=== PATIENT | male | born 1940 | race Caucasian/White ===

== ENCOUNTER → 2016-09-22 | Outpatient (REF) | payer MEDICARE ==
[2016-09-22 18:14] LABS: MEAN CORPUSCULAR HEMOGLOBIN 31.5 pg (27.0-33.0); MEAN CORPUSCULAR VOLUME 90.1 fl (80.0-96.0); RED CELL DISTRIBUTION WIDTH 12.5 % (11.5-14.5); WHITE BLOOD COUNT 7.1 K/mm3 (4.0-10.0)
[2016-09-22 19:19] LABS: ALBUMIN 3.5 GM/DL (3.2-5.2); ALBUMIN/GLOBULIN RATIO 1.13 (1.00-1.93); ALKALINE PHOSPHATASE 84 U/L (45-117); ALT/SGPT 36 U/L (12-78); ANION GAP 5 MEQ/L (8-16); AST/SGOT 23 U/L (15-37); BILIRUBIN,TOTAL 2.4 MG/DL (0.2-1.0); BLOOD UREA NITROGEN 18 MG/DL (7-18); CALCIUM LEVEL 9.4 MG/DL (8.8-10.2); CARBON DIOXIDE LEVEL 31 MEQ/L (21-32); CHLORIDE LEVEL 104 MEQ/L (98-107); CHOLESTEROL LEVEL 143 MG/DL (<200); GLOMERULAR FILTRATION RATE > 60.0 (>42); GLUCOSE, FASTING 135 MG/DL (83-110); POTASSIUM SERUM 4.4 MEQ/L (3.5-5.1); SODIUM LEVEL 140 MEQ/L (136-145); TOTAL PROTEIN 6.6 GM/DL (6.4-8.2); TRIGLYCERIDES LEVEL 100 MG/DL (<150)
== END ==
LOC: M SFHCPLAZ 13:56
PROVIDERS: ATTEND Internal Medicine
DX: Z80.0 Family history of malignant neoplasm of digestive organs (principal); I10 Essential (primary) hypertension; E11.9 Type 2 diabetes mellitus without complications; E78.00 Pure hypercholesterolemia, unspecified

== ENCOUNTER → 2017-03-29 | Outpatient (REF) | payer MEDICARE ==
[2017-03-29 16:03] LABS: ALBUMIN 3.6 GM/DL (3.2-5.2); ALBUMIN/GLOBULIN RATIO 1.13 (1.00-1.93); ALKALINE PHOSPHATASE 88 U/L (45-117); ALT/SGPT 31 U/L (12-78); ANION GAP 10 MEQ/L (8-16); AST/SGOT 23 U/L (7-37); BILIRUBIN,TOTAL 2.2 MG/DL (0.2-1.0); BLOOD UREA NITROGEN 18 MG/DL (7-18); CALCIUM LEVEL 9.6 MG/DL (8.8-10.2); CARBON DIOXIDE LEVEL 27 MEQ/L (21-32); CHLORIDE LEVEL 105 MEQ/L (98-107); CREATININE FOR GFR 1.05 MG/DL (0.70-1.30); GLOMERULAR FILTRATION RATE > 60.0 (>42); GLUCOSE, FASTING 125 MG/DL (83-110); POTASSIUM SERUM 4.7 MEQ/L (3.5-5.1); SODIUM LEVEL 142 MEQ/L (136-145); TOTAL PROTEIN 6.8 GM/DL (6.4-8.2)
== END ==
LOC: M SFHCPLAZ 13:34
PROVIDERS: ATTEND Internal Medicine
DX: I10 Essential (primary) hypertension (principal); E11.9 Type 2 diabetes mellitus without complications

== ENCOUNTER 2017-04-29 18:46 | Emergency (ER) | payer MEDICARE ==
[2017-04-29] MEDS: LIDOCAINE 1% MDV 20ML VIAL SC (20:30)
[2017-04-29] MEDS: TETANUS/DIPHTHERIA TOX ADSORB ADULT 0.5ML SYR/VIAL (90714) IM (20:40)
== END 2017-04-29 21:17 | disposition home or self-care (01) ==
LOC: M ED 18:46
DX: S61.213A Laceration without foreign body of left middle finger without damage to nail, initial encounter (principal); W26.9XXA Contact with unspecified sharp object(s), initial encounter; Y92.018 Other place in single-family (private) house as the place of occurrence of the external cause; Y93.89 Activity, other specified; Y99.8 Other external cause status; E11.9 Type 2 diabetes mellitus without complications; I10 Essential (primary) hypertension; Z79.899 Other long term (current) drug therapy; Z79.84 Long term (current) use of oral hypoglycemic drugs
CPT/HCPCS: 90714

== ENCOUNTER → 2017-10-01 | Outpatient (REF) | payer MEDICARE ==
[2017-10-01 16:04] LABS: HEMATOCRIT 42.5 % (42.0-52.0); HEMOGLOBIN 14.6 g/dl (13.5-17.5); MEAN CORPUSCULAR HEMOGLOBIN 30.1 pg (27.0-33.0); MEAN CORPUSCULAR HGB CONC 34.4 g/dl (32.0-36.5); MEAN CORPUSCULAR VOLUME 87.6 fl (80.0-96.0); PLATELET COUNT, AUTOMATED 245 10^3/uL (150-450); RED BLOOD COUNT 4.85 10^6/uL (4.30-6.10); RED CELL DISTRIBUTION WIDTH 12.7 % (11.5-14.5); WHITE BLOOD COUNT 6.8 10^3/uL (4.0-10.0)
[2017-10-01 16:20] LABS: ALBUMIN 3.4 GM/DL (3.2-5.2); ALBUMIN/GLOBULIN RATIO 1.03 (1.00-1.93); ALKALINE PHOSPHATASE 114 U/L (45-117); ALT/SGPT 29 U/L (12-78); ANION GAP 5 MEQ/L (8-16); AST/SGOT 22 U/L (7-37); BILIRUBIN,TOTAL 1.7 MG/DL (0.2-1.0); BLOOD UREA NITROGEN 21 MG/DL (7-18); CALCIUM LEVEL 9.3 MG/DL (8.8-10.2); CARBON DIOXIDE LEVEL 30 MEQ/L (21-32); CHLORIDE LEVEL 106 MEQ/L (98-107); CHOLESTEROL LEVEL 123 MG/DL (<200); CREATININE FOR GFR 1.23 MG/DL (0.70-1.30); GLOMERULAR FILTRATION RATE > 60.0 (>42); GLUCOSE, FASTING 141 MG/DL (70-100); HDL CHOLESTEROL 60 MG/DL (>40); LDL CHOLESTEROL 39.4 MG/DL (<100); MAGNESIUM LEVEL 2.1 MG/DL (1.8-2.4); NON-HDL-C 63 MG/DL; POTASSIUM SERUM 4.2 MEQ/L (3.5-5.1); SODIUM LEVEL 141 MEQ/L (136-145); TOTAL PROTEIN 6.7 GM/DL (6.4-8.2); TRIGLYCERIDES LEVEL 118 MG/DL (<150)
[2017-10-01 16:22] LABS: ESTIMATED AVERAGE GLUCOSE 137 MG/DL (60-110); HEMOGLOBIN A1c 6.4 %
[2017-10-01 19:41] LABS: MALB URINE SIEMENS 57.9 MG/L
== END ==
LOC: M SFHCPLAZ 14:13
DX: J30.9 Allergic rhinitis, unspecified (principal); I10 Essential (primary) hypertension; E11.9 Type 2 diabetes mellitus without complications; E78.00 Pure hypercholesterolemia, unspecified
CPT/HCPCS: 83735

== ENCOUNTER → 2018-03-29 | Outpatient (REF) | payer MEDICARE ==
[2018-03-29 18:59] LABS: ALBUMIN 3.5 GM/DL (3.2-5.2); ALBUMIN/GLOBULIN RATIO 1.03 (1.00-1.93); ALKALINE PHOSPHATASE 123 U/L (45-117); ALT/SGPT 29 U/L (12-78); ANION GAP 8 MEQ/L (8-16); AST/SGOT 26 U/L (7-37); BLOOD UREA NITROGEN 23 MG/DL (7-18); CALCIUM LEVEL 9.3 MG/DL (8.8-10.2); CARBON DIOXIDE LEVEL 28 MEQ/L (21-32); CHLORIDE LEVEL 105 MEQ/L (98-107); CREATININE FOR GFR 1.21 MG/DL (0.70-1.30); GLOMERULAR FILTRATION RATE > 60.0 (>42); GLUCOSE, FASTING 117 MG/DL (70-100); MAGNESIUM LEVEL 2.1 MG/DL (1.8-2.4); POTASSIUM SERUM 4.2 MEQ/L (3.5-5.1); SODIUM LEVEL 141 MEQ/L (136-145); TOTAL PROTEIN 6.9 GM/DL (6.4-8.2)
[2018-03-29 20:46] LABS: ESTIMATED AVERAGE GLUCOSE 143 MG/DL (60-110); HEMOGLOBIN A1c 6.6 %
== END ==
LOC: M SFHCPLAZ 14:28
DX: I10 Essential (primary) hypertension (principal); E11.9 Type 2 diabetes mellitus without complications
CPT/HCPCS: 83735

== ENCOUNTER → 2018-11-23 | Outpatient (REF) | payer MEDICARE ==
[~2018-11-23] MED LIST: BIMA01SOL; BISO10TA13 PO; GEMF600T5 PO; ISTA0.5S; LISINOPRIL-HCTZ; METF750T; SIMV40TA2
[2018-11-23 16:15] LABS: HEMATOCRIT 43.4 % (42.0-52.0); HEMOGLOBIN 14.8 g/dl (13.5-17.5); MEAN CORPUSCULAR HGB CONC 34.1 g/dl (32.0-36.5); PLATELET COUNT, AUTOMATED 238 10^3/uL (150-450); RED BLOOD COUNT 4.93 10^6/uL (4.30-6.10); WHITE BLOOD COUNT 7.8 10^3/uL (4.0-10.0)
[2018-11-23 16:37] LABS: ALBUMIN 3.8 GM/DL (3.2-5.2); ALT/SGPT 29 U/L (12-78); BLOOD UREA NITROGEN 18 MG/DL (7-18); CALCIUM LEVEL 10.2 MG/DL (8.8-10.2); CARBON DIOXIDE LEVEL 32 MEQ/L (21-32); CHLORIDE LEVEL 106 MEQ/L (98-107); CHOLESTEROL LEVEL 132 MG/DL (<200); CHOLESTEROL RISK RATIO 2.062 (<5); CREATININE FOR GFR 1.13 MG/DL (0.70-1.30); GLOMERULAR FILTRATION RATE > 60.0 (>42); GLUCOSE, FASTING 113 MG/DL (70-100); HDL CHOLESTEROL 64 MG/DL (>40); LDL CHOLESTEROL 39 MG/DL (<100); NON-HDL-C 68 MG/DL; POTASSIUM SERUM 4.2 MEQ/L (3.5-5.1); SODIUM LEVEL 142 MEQ/L (136-145); TRIGLYCERIDES LEVEL 144 MG/DL (<150)
[2018-11-23 16:45] LABS: MALB URINE SIEMENS 59.4 MG/L; MAU/CREAT RATIO 15.9 MCG/MG (0.0-30.0)
[2018-11-23 16:55] LABS: HEMOGLOBIN A1c 6.8 %
== END ==
LOC: M SFHCPLAZ 14:46
PROVIDERS: ATTEND Internal Medicine
DX: J30.9 Allergic rhinitis, unspecified (principal); I10 Essential (primary) hypertension; E11.9 Type 2 diabetes mellitus without complications; E78.00 Pure hypercholesterolemia, unspecified

== ENCOUNTER → 2019-01-16 | Outpatient (CLI) | payer MEDICARE ==
[~2019-01-16] MED LIST changes: -METF750T; +METF750T36
[2019-01-16 15:00] LABS: BLOOD UREA NITROGEN 17 MG/DL (7-18); CREATININE FOR GFR 1.15 MG/DL (0.70-1.30); GLOMERULAR FILTRATION RATE > 60.0 (>42)
== END ==
LOC: M LAB 13:42
PROVIDERS: ATTEND Specialist
DX: D14.1 Benign neoplasm of larynx (principal)

== ENCOUNTER → 2019-01-20 | Outpatient (CLI) | payer MEDICARE ==
[~2019-01-20] MED LIST changes: +ISOVUE-370 76% 100ML VIAL (Q9967) As Ordered ONE
--- NOTE | 2019-01-20 13:06 | REP ---
CT neck soft tissues study with IV contrast: History: Benign neoplasm of the larynx. CT contrast dose: 75 ml of intravenous Isovue [address] findings: Digital preliminary bead flipper views are unremarkable. No other supraglottic mass lesion is seen. Epiglottis and aryepiglottic folds are unremarkable. Thyroid and arytenoid cartilages are unremarkable. No subglottic airway lesion is seen. There is a 5 mm polypoid lesion on the left anterior side of the glottis at what appears to be the level of the false cords. There is a second smaller 3 mm polyp just below this which may be associated with the true cord or the larger polyp. These are best displayed on sagittal thin-section MPR images windowed at lung window settings. The left vertebral artery is incidentally noted to take a a a direct aortic origin. No other vascular abnormality is observed. Visualized paranasal sinuses are clear. The visualized intracranial structures are unremarkable. There is no evidence of cervical lymphadenopathy. Thyroid lobes are normal and homogeneous. Submandibular and parotid glands are normal and symmetric. No bony destructive lesion is seen. 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 Impression: Polypoid changes on the left side of the glottis as above. Electronically Signed by Gerson Arriaga MD 01/20/2019 12:57 P
== END ==
LOC: M RAD 09:48
PROVIDERS: ATTEND Specialist
DX: D14.1 Benign neoplasm of larynx (principal)
CPT/HCPCS: 70491; Q9967

== ENCOUNTER 2019-03-20 09:37 | Day surgery (SDC) | payer MEDICARE ==
[~2019-03-20] VITALS: Ht 180.3 cm; Wt 84.9 kg
[~2019-03-20 09:37] MED LIST changes: +ASPI81TA85 PO; -BIMA01SOL; +BIMA01SOL OU; +BISO5TAB9 PO; +DORZ2SOL5 OU; -ISOVUE-370 76% 100ML VIAL (Q9967) As Ordered ONE; +LIDOCAINE 1% MDV 20ML VIAL SQ PRN; +LISI20TA19 PO; +LOVA1CAP17 PO; +LR 1,000 ML IV ONE; +META0.52 PO; -METF750T36; +METF750T36 PO; +MULTCAP PO; -SIMV40TA2; +SIMV40TA20
[2019-03-20] MEDS ORDERED: PROPOFOL 200 MG/20 ML VIAL As Ordered ONE (10:43)
[2019-03-20] MEDS ORDERED: ROCURONIUM BROMIDE 50 MG/5 ML VIAL As Ordered ONE (10:43)
[2019-03-20] MEDS ORDERED: LIDOCAINE 2% INJ 100 MG/5 ML SDV (FOR ANES.) As Ordered ONE (10:43)
[2019-03-20] MEDS ORDERED: dexameTHASONE 4 MG/ML 1ML VIAL (J1100) As Ordered ONE (10:43)
[2019-03-20] MEDS ORDERED: fentaNYL 250 MCG/5 ML INJECTION (J3010) As Ordered ONE (10:43)
[2019-03-20] MEDS ORDERED: MIDAZOLAM INJ 2 MG/2 ML VIAL (J2250) As Ordered ONE (10:43)
[2019-03-20] MEDS ORDERED: ONDANSETRON 4MG/2ML VIAL (J2405) As Ordered ONE (10:43)
[2019-03-20] MEDS ORDERED: EPINEPHrine 1MG/ML INJ 30ML MD-VIAL As Ordered ONE (12:02)
[2019-03-20] MEDS ORDERED: CETACAINE SPRAY 5GM As Ordered ONE (12:02)
[2019-03-20] MEDS ORDERED: ACETAMINOPHEN 1000MG 100ML IV BTL (OFIRMEV) (J0131 PER 10MG) As Ordered ONE (12:34)
[2019-03-20] MEDS ORDERED: SUGAMMADEX SODIUM 500 MG/5 ML VIAL (BRIDION) As Ordered ONE (12:34)
[2019-03-20] MEDS ORDERED: PHENYLephrine HCL 500 MCG/5 ML (100MCG/ML) SYRINGE (J2370) As Ordered ONE (12:47)
[2019-03-20] MEDS ORDERED: SUCCINYLCHOLINE 100 MG/5 ML SYRINGE (J0330) As Ordered ONE (12:47)
[2019-03-20] MEDS ORDERED: fentaNYL 100 MCG/2 ML INJECTION (J3010) IV PRN (13:30)
[2019-03-20] MEDS ORDERED: PERCOCET 5MG/325MG TAB PO PRN ×2 (13:30)
[2019-03-20] MEDS ORDERED: ONDANSETRON 4MG/2ML VIAL (J2405) IV PRN (13:30)
[2019-03-20] MEDS ORDERED: METOCLOPRAMIDE INJ 10MG/2ML VIAL (J2765) IV PRN (13:30)
[2019-03-20] MEDS ORDERED: LR 1,000 ML IV SCH (13:30)
[2019-03-20 13:41] VITALS: BP 161/77
--- NOTE | 2019-03-23 17:53 | RO ---
DATE OF PROCEDURE: PREPROCEDURE DIAGNOSIS: Left vocal cord mass. 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 PROCEDURE: Microdirect laryngoscopy and excision of vocal cord masses. SURGEON: Austyn Garcia MD SERVER SECURITY ADMINISTRATOR: ANESTHESIA: INDICATIONS: A 79-year-old nonsmoker, presents with hoarseness after yelling and screaming at one of his pets. On examination, it was suggestive of some type of soft tissue mass in the very anterior one-third of the left vocal fold, appeared to be actually on the false fold but seemed to also extend onto the left true cord as well. DESCRIPTION OF PROCEDURE: Satisfactory general endotracheal anesthesia using the small endotracheal tube, double-lighted Dedo laryngoscope was inserted in the oropharynx and advanced into the glottic vestibule and with good visualization of the glottis, it was suspended with the Lewey apparatus. Microscope was brought in place and then photomicrographs were taken. It appeared to be a mucocele-type cystic mass on the medial aspect of the left vocal fold far anteriorly. There also appeared to be a granuloma-type mass seen coming beneath this that seemed to emerge from the left true cord. Adrenaline pledget was placed over this area for vasoconstriction purposes. This was removed and using the Straightshot microdebrider, first the granuloma mass was biopsied and then excised completely with the microdebrider. No significant bleeding was encountered. Adrenaline pledge was placed over the true cord where the granuloma had been. Next, the microdebrider was placed in contact with the cystic mucocele-type mass seen on the left vocal cord and basically excised it with very little remnant left over of soft tissue. Inspection of the glottis and the false cord showed no significant redundant mucosal tissue, and there was no significant edema noted. After adrenaline pledgets were removed after having been placed on the surgical site, there was no significant bleeding. The glottis was suctioned. The patient was then awakened, extubated and sent to recovery in satisfactory condition.
== END 2019-03-20 14:23 | disposition home or self-care (01) ==
LOC: M SDC 09:37
PROVIDERS: ATTEND Specialist
DX: J38.3 Other diseases of vocal cords (principal); R49.0 Dysphonia; I10 Essential (primary) hypertension; E11.9 Type 2 diabetes mellitus without complications; E78.00 Pure hypercholesterolemia, unspecified; Z79.82 Long term (current) use of aspirin; Z79.899 Other long term (current) drug therapy
CPT/HCPCS: 31541; 88305; 88342; J0131; J0330; J1100; J2250; J2370; J2405; J3010

== ENCOUNTER 2019-05-21 15:41 | Emergency (ER) | payer MEDICARE ==
[~2019-05-21] VITALS: Ht 180.3 cm; Wt 87.5 kg
[2019-05-21 15:41] VITALS: BP 153/78
[~2019-05-21 15:41] MED LIST changes: +BISO5TAB14 PO; -BISO5TAB9 PO; -LIDOCAINE 1% MDV 20ML VIAL SQ PRN; -LR 1,000 ML IV ONE
[2019-05-21] MEDS ORDERED: ISTA0.5S OU (15:54)
[2019-05-21] MEDS ORDERED: VALA1TAB64 PO (16:20)
[2019-05-21] MEDS ORDERED: NEUR100C PO (16:20)
[2019-05-21] MEDS ORDERED: GABAPENTIN 100 MG CAP PO ONE (16:30)
[2019-05-21] MEDS ORDERED: valACYclovir HCL 500 MG TAB PO ONE (16:30)
== END 2019-05-21 16:42 | disposition home or self-care (01) ==
LOC: M ED 15:41
DX: B02.9 Zoster without complications (principal); Z79.82 Long term (current) use of aspirin; Z79.84 Long term (current) use of oral hypoglycemic drugs; Z79.899 Other long term (current) drug therapy

== ENCOUNTER → 2019-05-29 | Outpatient (CLI) | payer MEDICARE ==
[~2019-05-29] MED LIST changes: +ISTA0.5S OU; +NEUR100C PO; +VALA1TAB5 PO
[2019-05-29 17:30] LABS: ALBUMIN 3.8 GM/DL (3.2-5.2); ALT/SGPT 30 U/L (12-78); BILIRUBIN,TOTAL 1.9 MG/DL (0.2-1.0); BLOOD UREA NITROGEN 20 MG/DL (7-18); CALCIUM LEVEL 9.9 MG/DL (8.8-10.2); CARBON DIOXIDE LEVEL 30 MEQ/L (21-32); CHLORIDE LEVEL 105 MEQ/L (98-107); CHOLESTEROL LEVEL 127 MG/DL (<200); CHOLESTEROL RISK RATIO 2.116 (<5); CREATININE FOR GFR 1.16 MG/DL (0.70-1.30); GLOMERULAR FILTRATION RATE > 60.0 (>42); GLUCOSE, FASTING 129 MG/DL (70-100); HDL CHOLESTEROL 60 MG/DL (>40); LDL CHOLESTEROL 47 MG/DL (<100); MAGNESIUM LEVEL 1.9 MG/DL (1.8-2.4); NON-HDL-C 67 MG/DL; POTASSIUM SERUM 4.4 MEQ/L (3.5-5.1); SODIUM LEVEL 140 MEQ/L (136-145); TRIGLYCERIDES LEVEL 99 MG/DL (<150)
== END ==
LOC: M PLALAB 13:34
PROVIDERS: ATTEND Internal Medicine
DX: E11.9 Type 2 diabetes mellitus without complications (principal); E78.00 Pure hypercholesterolemia, unspecified; I10 Essential (primary) hypertension

== ENCOUNTER → 2019-11-30 | Outpatient (REF) | payer MEDICARE ==
[~2019-11-30] MED LIST changes: -ASPI81TA85 PO; +ASPI81TA86 PO; -LISI20TA19 PO; +LISI20TA35 PO
[2020-01-03 13:35] LABS: HEMATOCRIT 42.2 % (42.0-52.0); HEMOGLOBIN 14.5 g/dl (13.5-17.5); MEAN CORPUSCULAR HEMOGLOBIN 30.9 pg (27.0-33.0); MEAN CORPUSCULAR HGB CONC 34.4 g/dl (32.0-36.5); PLATELET COUNT, AUTOMATED 239 10^3/uL (150-450); RED BLOOD COUNT 4.69 10^6/uL (4.30-6.10)
[2020-01-17 12:58] LABS: ALT/SGPT 23 U/L (12-78); BILIRUBIN,TOTAL 2.5 MG/DL (0.2-1.0); BLOOD UREA NITROGEN 24 MG/DL (7-18); CALCIUM LEVEL 9.6 MG/DL (8.8-10.2); CARBON DIOXIDE LEVEL 32 MEQ/L (21-32); CHLORIDE LEVEL 104 MEQ/L (98-107); CHOLESTEROL LEVEL 127 MG/DL (<200); CHOLESTEROL RISK RATIO 2.351 (<5); CREATININE FOR GFR 1.19 MG/DL (0.70-1.30); FOLATE > 24.0 NG/ML; GLOMERULAR FILTRATION RATE > 60.0 (>42); GLUCOSE, FASTING 123 MG/DL (70-100); HDL CHOLESTEROL 54 MG/DL (>40); HEMOGLOBIN A1c 5.8 %; LDL CHOLESTEROL 44 MG/DL (<100); MAGNESIUM LEVEL 1.9 MG/DL (1.8-2.4); NON-HDL-C 73 MG/DL; SODIUM LEVEL 139 MEQ/L (136-145); TOTAL PROTEIN 7.3 GM/DL (6.4-8.2); TRIGLYCERIDES LEVEL 145 MG/DL (<150); VITAMIN B12 LEVEL 349 PG/ML
== END ==
LOC: M SFHCPLAZ 15:36
PROVIDERS: ATTEND Internal Medicine
DX: I10 Essential (primary) hypertension (principal); E11.9 Type 2 diabetes mellitus without complications; G62.9 Polyneuropathy, unspecified; E78.00 Pure hypercholesterolemia, unspecified; Z80.0 Family history of malignant neoplasm of digestive organs

== ENCOUNTER → 2020-05-27 | Outpatient (REF) | payer MEDICARE ==
[2020-05-27 19:12] LABS: CREATININE, URINE 94.4 MG/DL; MALB URINE SIEMENS 9.6 MG/L; MAU/CREAT RATIO 10.1 MCG/MG (0.0-30.0)
[2020-05-27 19:15] LABS: ALBUMIN 3.7 GM/DL (3.2-5.2); ALT/SGPT 22 U/L (12-78); BILIRUBIN,TOTAL 2.2 MG/DL (0.2-1.0); BLOOD UREA NITROGEN 23 MG/DL (7-18); CARBON DIOXIDE LEVEL 32 MEQ/L (21-32); CHLORIDE LEVEL 105 MEQ/L (98-107); CHOLESTEROL LEVEL 125 MG/DL (<200); CHOLESTEROL RISK RATIO 2.155 (<5); CREATININE FOR GFR 1.21 MG/DL (0.70-1.30); GLOMERULAR FILTRATION RATE > 60.0 (>35); GLUCOSE, FASTING 117 MG/DL (70-100); HDL CHOLESTEROL 58 MG/DL (>40); LDL CHOLESTEROL 43 MG/DL (<100); MAGNESIUM LEVEL 1.8 MG/DL (1.8-2.4); NON-HDL-C 67 MG/DL; POTASSIUM SERUM 4.5 MEQ/L (3.5-5.1); SODIUM LEVEL 142 MEQ/L (136-145); TRIGLYCERIDES LEVEL 120 MG/DL (<150)
[2020-05-27 20:20] LABS: HEMOGLOBIN A1c 5.8 %
== END ==
LOC: M PLALAB 14:24
PROVIDERS: ATTEND Internal Medicine
DX: I10 Essential (primary) hypertension (principal); E11.9 Type 2 diabetes mellitus without complications; E78.00 Pure hypercholesterolemia, unspecified; Z11.59 Encounter for screening for other viral diseases
CPT/HCPCS: 36415; 80053; 80061; 82043; 83036; 83735; G0472

== ENCOUNTER → 2020-11-27 | Outpatient (CLI) | payer MEDICARE ==
[2020-11-27 15:46] LABS: ALBUMIN 3.6 GM/DL (3.2-5.2); ALT/SGPT 25 U/L (12-78); BILIRUBIN,TOTAL 1.8 MG/DL (0.2-1.0); BLOOD UREA NITROGEN 25 MG/DL (7-18); CARBON DIOXIDE LEVEL 30 MEQ/L (21-32); CHLORIDE LEVEL 107 MEQ/L (98-107); CREATININE FOR GFR 1.02 MG/DL (0.70-1.30); GLOMERULAR FILTRATION RATE > 60.0 (>35); GLUCOSE, FASTING 118 MG/DL (70-100); MAGNESIUM LEVEL 2.1 MG/DL (1.8-2.4); POTASSIUM SERUM 4.2 MEQ/L (3.5-5.1); SODIUM LEVEL 142 MEQ/L (136-145); TOTAL PROTEIN 6.6 GM/DL (6.4-8.2)
== END ==
LOC: M PLALAB 13:10
PROVIDERS: ATTEND Internal Medicine
DX: I10 Essential (primary) hypertension (principal); E11.9 Type 2 diabetes mellitus without complications

== ENCOUNTER → 2021-03-07 | Outpatient (CLI) | payer MEDICARE ==
--- NOTE | 2021-03-07 16:28 | REP ---
INDICATION: RIGHT ELBOW PAIN COMPARISON: None. TECHNIQUE: AP, lateral, bilateral oblique views of the right elbow. FINDINGS: Lateral view demonstrates posterior swelling consistent with bursitis. Osseous structures are intact and without acute fracture or dislocation. No significant arthritic changes are identified. Anterior fat pad is in normal position. IMPRESSION: Posterior swelling consistent with bursitis. <Electronically signed by Donnie Stout > 03/07/21 [id number]
[2021-03-07 17:21] LABS: BASO # 0.1 10^3/uL (0.0-0.2); BASO % 0.5 % (0.0-1.0); EOS # 0.2 10^3/uL (0.0-0.5); EOS % 2.3 % (0.0-3.0); HEMATOCRIT 43.8 % (42.0-52.0); HEMOGLOBIN 14.4 g/dl (13.5-17.5); LYMPH # 3.1 10^3/uL (1.5-5.0); MEAN CORPUSCULAR HEMOGLOBIN 29.6 pg (27.0-33.0); MEAN CORPUSCULAR HGB CONC 32.9 g/dl (32.0-36.5); MEAN CORPUSCULAR VOLUME 89.9 fl (80.0-96.0); MONO % 9.8 % (2.0-8.0); NEUTROPHILS # 5.5 10^3/uL (1.5-8.5); PLATELET COUNT, AUTOMATED 252 10^3/uL (150-450); RED BLOOD COUNT 4.87 10^6/uL (4.30-6.10); WHITE BLOOD COUNT 9.9 10^3/uL (4.0-10.0)
[2021-03-07 17:46] LABS: ALBUMIN 3.4 GM/DL (3.2-5.2); ALT/SGPT 18 U/L (12-78); BILIRUBIN,TOTAL 2.4 MG/DL (0.2-1.0); BLOOD UREA NITROGEN 23 MG/DL (7-18); C REACTIVE PROTEIN QUANTITATIV 3.21 MG/DL (0.00-0.30); CALCIUM LEVEL 9.9 MG/DL (8.8-10.2); CARBON DIOXIDE LEVEL 32 MEQ/L (21-32); CHLORIDE LEVEL 102 MEQ/L (98-107); CREATININE FOR GFR 1.19 MG/DL (0.70-1.30); GLOMERULAR FILTRATION RATE > 60.0 (>35); GLUCOSE, FASTING 119 MG/DL (70-100); POTASSIUM SERUM 4.4 MEQ/L (3.5-5.1); SODIUM LEVEL 138 MEQ/L (136-145); TOTAL PROTEIN 7.1 GM/DL (6.4-8.2); URIC ACID 6.8 MG/DL (3.5-7.2)
[2021-03-07 18:45] LABS: ERYTHROCYTE SEDIMENTATION RATE 48 mm/hr (0-20)
== END ==
LOC: M PLAIMG 15:46
PROVIDERS: ATTEND Family Medicine
DX: M70.21 Olecranon bursitis, right elbow (principal); Z79.899 Other long term (current) drug therapy

== ENCOUNTER → 2021-05-28 | Outpatient (CLI) | payer MEDICARE ==
[2021-05-28 17:57] LABS: BASO # 0.1 10^3/uL (0.0-0.2); BASO % 0.9 % (0.0-1.0); EOS # 0.3 10^3/uL (0.0-0.5); EOS % 3.6 % (0.0-3.0); HEMOGLOBIN 15.2 g/dl (13.5-17.5); LYMPH # 2.5 10^3/uL (1.5-5.0); LYMPH % 36.5 % (24.0-44.0); MEAN CORPUSCULAR HEMOGLOBIN 30.1 pg (27.0-33.0); MEAN CORPUSCULAR HGB CONC 33.8 g/dl (32.0-36.5); MEAN CORPUSCULAR VOLUME 89.1 fl (80.0-96.0); MONO # 0.6 10^3/uL (0.0-0.8); MONO % 8.8 % (2.0-8.0); NEUTROPHILS # 3.5 10^3/uL (1.5-8.5); NEUTROPHILS % 50.1 % (36.0-66.0); PLATELET COUNT, AUTOMATED 264 10^3/uL (150-450); RED BLOOD COUNT 5.05 10^6/uL (4.30-6.10); WHITE BLOOD COUNT 6.9 10^3/uL (4.0-10.0)
[2021-05-28 18:06] LABS: MALB URINE SIEMENS 31.8 MG/L; MAU/CREAT RATIO 20.7 MCG/MG (0.0-30.0)
[2021-05-28 18:12] LABS: ALBUMIN 3.5 GM/DL (3.2-5.2); ALT/SGPT 21 U/L (12-78); BILIRUBIN,TOTAL 2.6 MG/DL (0.2-1.0); BLOOD UREA NITROGEN 27 MG/DL (7-18); CALCIUM LEVEL 9.8 MG/DL (8.8-10.2); CARBON DIOXIDE LEVEL 31 MEQ/L (21-32); CHLORIDE LEVEL 105 MEQ/L (98-107); CHOLESTEROL LEVEL 120 MG/DL (<200); CHOLESTEROL RISK RATIO 2.105 (<5); CREATININE FOR GFR 1.19 MG/DL (0.70-1.30); GLOMERULAR FILTRATION RATE > 60.0 (>35); GLUCOSE, FASTING 111 MG/DL (70-100); HDL CHOLESTEROL 57 MG/DL (>40); LDL CHOLESTEROL 40 MG/DL (<100); NON-HDL-C 63 MG/DL; POTASSIUM SERUM 4.4 MEQ/L (3.5-5.1); SODIUM LEVEL 141 MEQ/L (136-145); TOTAL PROTEIN 6.9 GM/DL (6.4-8.2); TRIGLYCERIDES LEVEL 117 MG/DL (<150)
[2021-05-29 17:26] LABS: MAGNESIUM LEVEL 1.9 MG/DL (1.7-2.2)
== END ==
LOC: M PLALAB 14:57
PROVIDERS: ATTEND Internal Medicine
DX: I10 Essential (primary) hypertension (principal); E11.9 Type 2 diabetes mellitus without complications; E78.00 Pure hypercholesterolemia, unspecified; Z80.0 Family history of malignant neoplasm of digestive organs

== ENCOUNTER → 2021-10-01 | Outpatient (CLI) | payer MEDICARE | LOC: M ONCR 15:19 | PROVIDERS: ATTEND General Practice | DX: D04.4 Carcinoma in situ of skin of scalp and neck (principal); L57.0 Actinic keratosis; L64.8 Other androgenic alopecia; Z79.82 Long term (current) use of aspirin; Z79.84 Long term (current) use of oral hypoglycemic drugs; Z79.899 Other long term (current) drug therapy; Z85.828 Personal history of other malignant neoplasm of skin ==

== ENCOUNTER 2021-10-07 08:32 | Outpatient (RCR) | payer MEDICARE | END 2021-10-16 | LOC: M ONCR 08:32 | PROVIDERS: ATTEND General Practice | DX: C44.42 Squamous cell carcinoma of skin of scalp and neck (principal); I10 Essential (primary) hypertension; E11.9 Type 2 diabetes mellitus without complications; Z79.899 Other long term (current) drug therapy; Z79.84 Long term (current) use of oral hypoglycemic drugs; Z79.82 Long term (current) use of aspirin ==

== ENCOUNTER 2021-11-14 15:18 | Outpatient (RCR) | payer MEDICARE | END 2021-11-16 | LOC: M ONCR 15:18 | PROVIDERS: ATTEND General Practice | DX: C44.42 Squamous cell carcinoma of skin of scalp and neck (principal) ==

== ENCOUNTER 2021-11-17 15:21 | Outpatient (RCR) | payer MEDICARE | END 2021-12-17 | LOC: M ONCR 15:21 | PROVIDERS: ATTEND General Practice | DX: C44.42 Squamous cell carcinoma of skin of scalp and neck (principal) ==

== ENCOUNTER → 2021-11-27 | Outpatient (CLI) | payer MEDICARE ==
[2021-11-27 16:55] LABS: ALBUMIN 3.2 GM/DL (3.2-5.2); ALT/SGPT 23 U/L (12-78); BILIRUBIN,TOTAL 1.5 MG/DL (0.2-1.0); BLOOD UREA NITROGEN 25 MG/DL (7-18); CALCIUM LEVEL 9.6 MG/DL (8.8-10.2); CARBON DIOXIDE LEVEL 29 MEQ/L (21-32); CHLORIDE LEVEL 107 MEQ/L (98-107); GLOMERULAR FILTRATION RATE > 60.0 (>35); GLUCOSE, FASTING 119 MG/DL (70-100); MAGNESIUM LEVEL 1.9 MG/DL (1.8-2.4); POTASSIUM SERUM 4.3 MEQ/L (3.5-5.1); SODIUM LEVEL 142 MEQ/L (136-145); TOTAL PROTEIN 6.6 GM/DL (6.4-8.2)
[2021-11-27 20:24] LABS: HEMOGLOBIN A1c 5.8 %
== END ==
LOC: M PLALAB 12:58
PROVIDERS: ATTEND Internal Medicine
DX: I10 Essential (primary) hypertension (principal); E11.9 Type 2 diabetes mellitus without complications

== ENCOUNTER → 2021-12-19 | Outpatient (CLI) | payer MEDICARE | LOC: M ONCR 15:18 | PROVIDERS: ATTEND General Practice | DX: Z08 Encounter for follow-up examination after completed treatment for malignant neoplasm (principal); L59.8 Other specified disorders of the skin and subcutaneous tissue related to radiation; Z92.3 Personal history of irradiation ==

== ENCOUNTER → 2022-05-29 | Outpatient (CLI) | payer MEDICARE ==
[2022-05-29 17:26] LABS: HEMATOCRIT 44.3 % (42.0-52.0); MEAN CORPUSCULAR HEMOGLOBIN 30.6 pg (27.0-33.0); MEAN CORPUSCULAR HGB CONC 33.9 g/dl (32.0-36.5); MEAN CORPUSCULAR VOLUME 90.4 fl (80.0-96.0); PLATELET COUNT, AUTOMATED 239 10^3/uL (150-450); WHITE BLOOD COUNT 6.5 10^3/uL (4.0-10.0)
[2022-05-29 17:37] LABS: C REACTIVE PROTEIN QUANTITATIV < 0.40 MG/DL (<1.0)
[2022-05-29 17:40] LABS: CREATININE, URINE 80.5 MG/DL; MAU/CREAT RATIO 22.3 MCG/MG (0.0-30.0)
[2022-05-29 17:43] LABS: ALBUMIN 3.7 G/DL (3.2-5.2); ALKALINE PHOSPHATASE 107 U/L (46-116); ALT/SGPT 22 U/L (7.0-40); AST/SGOT 30 U/L (<34); BILIRUBIN,TOTAL 2.3 MG/DL (0.3-1.2); BLOOD UREA NITROGEN 25 MG/DL (9-23); CALCIUM LEVEL 9.7 MG/DL (8.3-10.6); CARBON DIOXIDE LEVEL 33 MMOL/L (20-31); CHLORIDE LEVEL 102 MMOL/L (98-107); CHOLESTEROL LEVEL 133 MG/DL (<200); CHOLESTEROL RISK RATIO 2.33 (<5); CREATININE FOR GFR 1.08 MG/DL (0.70-1.30); FREE T4 1.05 NG/DL (0.89-1.76); GLOMERULAR FILTRATION RATE > 60.0 (>35); GLUCOSE, FASTING 105 MG/DL (74-106); LDL CHOLESTEROL 40.4 MG/DL (<100); NON-HDL-C 76 MG/DL; POTASSIUM SERUM 4.4 MMOL/L (3.5-5.1); SODIUM LEVEL 138 MMOL/L (136-145); TOTAL 25(OH) VITAMIN D 33.9 NG/ML (20.0-100.0); TOTAL PROTEIN 6.5 G/DL (5.7-8.2); TRIGLYCERIDES LEVEL 178 MG/DL (<150); VITAMIN B12 LEVEL 381 PG/ML (211-911)
[2022-05-29 17:47] LABS: HEMOGLOBIN A1c 6.1 % (4.0-6.0)
== END ==
LOC: M PLALAB 15:37
PROVIDERS: ATTEND Internal Medicine Hematology
DX: I10 Essential (primary) hypertension (principal); Z79.899 Other long term (current) drug therapy

== ENCOUNTER → 2022-05-29 | Outpatient (CLI) | payer MEDICARE | LOC: M ONCR 14:47 | PROVIDERS: ATTEND General Practice | DX: C44.42 Squamous cell carcinoma of skin of scalp and neck (principal); Z79.82 Long term (current) use of aspirin; Z79.84 Long term (current) use of oral hypoglycemic drugs; Z79.899 Other long term (current) drug therapy ==

== ENCOUNTER → 2022-12-02 | Outpatient (REF) | payer MEDICARE ==
[2022-12-02 17:36] LABS: HEMATOCRIT 41.9 % (42.0-52.0); HEMOGLOBIN 13.9 g/dl (13.5-17.5); MEAN CORPUSCULAR HGB CONC 33.2 g/dl (32.0-36.5); MEAN CORPUSCULAR VOLUME 90.5 fl (80.0-96.0); PLATELET COUNT, AUTOMATED 255 10^3/uL (150-450); RED BLOOD COUNT 4.63 10^6/uL (4.30-6.10); WHITE BLOOD COUNT 9.5 10^3/uL (4.0-10.0)
[2022-12-02 17:58] LABS: HEMOGLOBIN A1c 6.4 % (4.0-6.0)
[2022-12-02 18:05] LABS: ALBUMIN 3.7 G/DL (3.2-5.2); CALCIUM LEVEL 9.7 MG/DL (8.3-10.6); CHOLESTEROL RISK RATIO 2.53 (<5); CREATININE FOR GFR 1.67 MG/DL (0.70-1.30); FREE T4 1.09 NG/DL (0.89-1.76); GLOMERULAR FILTRATION RATE 42.1 (>35); HDL CHOLESTEROL 54.1 MG/DL (>40); LDL CHOLESTEROL 60.9 MG/DL (<100); NON-HDL-C 82.9 MG/DL; POTASSIUM SERUM 4.1 MMOL/L (3.5-5.1); THYROID STIMULATING HORMONE 1.389 uIU/ML (0.55-4.78); TOTAL PROTEIN 6.7 G/DL (5.7-8.2)
[2022-12-02 18:06] LABS: C REACTIVE PROTEIN QUANTITATIV 0.5 MG/DL (<1.0); TOTAL 25(OH) VITAMIN D 38.9 NG/ML (20.0-100.0)
== END ==
LOC: M PLALAB 16:56
PROVIDERS: ATTEND Internal Medicine Hematology
DX: E78.00 Pure hypercholesterolemia, unspecified (principal)

== ENCOUNTER → 2023-11-12 | Outpatient (REF) ==
[~2023-11-12] MED LIST changes: +ALLO10TA PO; +AMLO1TAB24 PO; +ASPI81TA26 PO; +BICA50TA4 PO; +CETI10TA PO; +FINA5TAB2 PO; +FLOM0.4C39 PO; +INDE80CA9 PO; +LISI20TA33 PO; +PROP60CA PO; -SIMV40TA20; +SIMV40TA20 PO; +THERTAB52 PO; +XALA0.007 OU
[2023-11-12 21:23] LABS: BASO # 0.1 10^3/uL (0.0-0.2); BASO % 0.9 % (0.0-1.0); EOS # 0.6 10^3/uL (0.0-0.5); HEMOGLOBIN 11.6 g/dl (13.5-17.5); LYMPH # 2.6 10^3/uL (1.5-5.0); LYMPH % 31.8 % (24.0-44.0); MEAN CORPUSCULAR HEMOGLOBIN 28.5 pg (27.0-33.0); MEAN CORPUSCULAR HGB CONC 32.2 g/dl (32.0-36.5); MEAN CORPUSCULAR VOLUME 88.5 fl (80.0-96.0); MONO # 0.6 10^3/uL (0.0-0.8); MONO % 7.2 % (2.0-8.0); NEUTROPHILS # 4.3 10^3/uL (1.5-8.5); NEUTROPHILS % 52.9 % (36.0-66.0); PLATELET COUNT, AUTOMATED 306 10^3/uL (150-450); RED BLOOD COUNT 4.07 10^6/uL (4.30-6.10)
[2023-11-12 21:35] LABS: ALBUMIN 3.3 G/DL (3.2-5.2); ALKALINE PHOSPHATASE 148 U/L (46-116); ALT/SGPT < 9 U/L (7.0-40); AST/SGOT 10 U/L (<34); BILIRUBIN,TOTAL 0.7 MG/DL (0.3-1.2); BLOOD UREA NITROGEN 33 MG/DL (9-23); CALCIUM LEVEL 9.6 MG/DL (8.3-10.6); CARBON DIOXIDE LEVEL 26 MMOL/L (20-31); CHLORIDE LEVEL 106 MMOL/L (98-107); CREATININE FOR GFR 1.99 MG/DL (0.70-1.30); GLOMERULAR FILTRATION RATE 34.3 (>35); GLUCOSE, FASTING 136 MG/DL (74-106); POTASSIUM SERUM 5.4 MMOL/L (3.5-5.1); SODIUM LEVEL 137 MMOL/L (136-145); TOTAL PROTEIN 6.7 G/DL (5.7-8.2)
[2023-11-12 21:46] LABS: HEMOGLOBIN A1c 5.6 % (4.0-6.0)
== END ==
LOC: SKLAB3 20:51
PROVIDERS: ATTEND Internal Medicine
DX: N13.9 Obstructive and reflux uropathy, unspecified (principal); E11.9 Type 2 diabetes mellitus without complications

== ENCOUNTER → 2023-12-07 | Outpatient (REF) | payer MEDICARE, MEDICAID ==
[2023-12-07 09:13] LABS: HEMATOCRIT 36.1 % (42.0-52.0); HEMOGLOBIN 11.7 g/dl (13.5-17.5); MEAN CORPUSCULAR HEMOGLOBIN 28.6 pg (27.0-33.0); MEAN CORPUSCULAR HGB CONC 32.4 g/dl (32.0-36.5); MEAN CORPUSCULAR VOLUME 88.3 fl (80.0-96.0); PLATELET COUNT, AUTOMATED 271 10^3/uL (150-450); RED BLOOD COUNT 4.09 10^6/uL (4.30-6.10); WHITE BLOOD COUNT 8.2 10^3/uL (4.0-10.0)
[2023-12-07 09:42] LABS: ALBUMIN 3.1 G/DL (3.2-5.2); CALCIUM LEVEL 9.8 MG/DL (8.3-10.6); CREATININE FOR GFR 1.61 MG/DL (0.70-1.30); GLOMERULAR FILTRATION RATE 43.8 (>35); TOTAL PROTEIN 6.7 G/DL (5.7-8.2)
== END ==
LOC: SKLAB3 07:54
PROVIDERS: ATTEND Internal Medicine
DX: N18.9 Chronic kidney disease, unspecified (principal)

== ENCOUNTER → 2023-12-29 | Outpatient (REF) | payer MEDICARE, MEDICAID | LOC: SKLAB3 12:27 | PROVIDERS: ATTEND Internal Medicine | DX: R97.20 Elevated prostate specific antigen [PSA] (principal) ==

== ENCOUNTER → 2023-12-29 | Outpatient (REF) | payer MEDICARE, MEDICAID ==
[2023-12-29 14:08] LABS: BASO # 0.1 10^3/uL (0.0-0.2); BASO % 0.7 % (0.0-1.0); EOS # 0.5 10^3/uL (0.0-0.5); EOS % 5.9 % (0.0-3.0); HEMOGLOBIN 11.2 g/dl (13.5-17.5); LYMPH # 3.1 10^3/uL (1.5-5.0); LYMPH % 34.8 % (24.0-44.0); MEAN CORPUSCULAR HEMOGLOBIN 29.3 pg (27.0-33.0); MEAN CORPUSCULAR HGB CONC 32.9 g/dl (32.0-36.5); MONO # 0.7 10^3/uL (0.0-0.8); MONO % 8.2 % (2.0-8.0); NEUTROPHILS # 4.4 10^3/uL (1.5-8.5); NEUTROPHILS % 50.2 % (36.0-66.0); PLATELET COUNT, AUTOMATED 285 10^3/uL (150-450); RED BLOOD COUNT 3.82 10^6/uL (4.30-6.10); WHITE BLOOD COUNT 8.8 10^3/uL (4.0-10.0)
[2023-12-29 14:31] LABS: PSA SCREENING 0.55 NG/ML (< 4.00)
[2023-12-29 14:32] LABS: BILIRUBIN,TOTAL 0.8 MG/DL (0.3-1.2); CALCIUM LEVEL 9.7 MG/DL (8.3-10.6); CREATININE FOR GFR 1.7 MG/DL (0.70-1.30); GLOMERULAR FILTRATION RATE 41.2 (>35); POTASSIUM SERUM 4.8 MMOL/L (3.5-5.1); TOTAL PROTEIN 6.6 G/DL (5.7-8.2)
== END ==
LOC: SKLAB3 09:53
PROVIDERS: ATTEND Internal Medicine
DX: R97.20 Elevated prostate specific antigen [PSA] (principal); Z12.5 Encounter for screening for malignant neoplasm of prostate
CPT/HCPCS: 36415; 80053; 85025; G0103

== ENCOUNTER → 2024-01-05 | Outpatient (REF) | payer MEDICARE, MEDICAID ==
[2024-01-05 16:01] LABS: BASO % 0.5 % (0.0-1.0); EOS # 0.6 10^3/uL (0.0-0.5); EOS % 7.2 % (0.0-3.0); HEMATOCRIT 35.7 % (42.0-52.0); HEMOGLOBIN 11.5 g/dl (13.5-17.5); LYMPH # 2.2 10^3/uL (1.5-5.0); LYMPH % 28.7 % (24.0-44.0); MEAN CORPUSCULAR HGB CONC 32.2 g/dl (32.0-36.5); MEAN CORPUSCULAR VOLUME 90.2 fl (80.0-96.0); MONO # 0.8 10^3/uL (0.0-0.8); NEUTROPHILS # 4.1 10^3/uL (1.5-8.5); NEUTROPHILS % 53.3 % (36.0-66.0); PLATELET COUNT, AUTOMATED 289 10^3/uL (150-450); RED BLOOD COUNT 3.96 10^6/uL (4.30-6.10); WHITE BLOOD COUNT 7.7 10^3/uL (4.0-10.0)
[2024-01-05 16:23] LABS: CALCIUM LEVEL 9.2 MG/DL (8.3-10.6); CREATININE FOR GFR 1.87 MG/DL (0.70-1.30); GLOMERULAR FILTRATION RATE 36.9 (>35); POTASSIUM SERUM 5.5 MMOL/L (3.5-5.1)
== END ==
LOC: SKLAB3 13:28
PROVIDERS: ATTEND Internal Medicine
DX: N13.30 Unspecified hydronephrosis (principal)

== ENCOUNTER 2024-01-06 09:41 | Emergency (ER) | payer MEDICARE, MEDICAID ==
[~2024-01-06] VITALS: Ht 180.3 cm; Wt 76.4 kg
[2024-01-06 11:06] LABS: BASO # 0.1 10^3/uL (0.0-0.2); BASO % 0.6 % (0.0-1.0); EOS # 0.6 10^3/uL (0.0-0.5); HEMATOCRIT 35.1 % (42.0-52.0); HEMOGLOBIN 11.4 g/dl (13.5-17.5); LYMPH # 2.7 10^3/uL (1.5-5.0); LYMPH % 33.6 % (24.0-44.0); MEAN CORPUSCULAR HEMOGLOBIN 29.6 pg (27.0-33.0); MEAN CORPUSCULAR HGB CONC 32.5 g/dl (32.0-36.5); MEAN CORPUSCULAR VOLUME 91.2 fl (80.0-96.0); MONO # 0.8 10^3/uL (0.0-0.8); MONO % 9.5 % (2.0-8.0); NEUTROPHILS % 48.9 % (36.0-66.0); PLATELET COUNT, AUTOMATED 267 10^3/uL (150-450); RED BLOOD COUNT 3.85 10^6/uL (4.30-6.10); WHITE BLOOD COUNT 8.1 10^3/uL (4.0-10.0)
[2024-01-06 11:39] LABS: CALCIUM LEVEL 9.3 MG/DL (8.3-10.6); CREATININE FOR GFR 1.79 MG/DL (0.70-1.30); GLOMERULAR FILTRATION RATE 38.8 (>35); POTASSIUM SERUM 5.1 MMOL/L (3.5-5.1)
[2024-01-06] MEDS: cefTRIAXone SOD 2 GM in D5W MINI-BAG PLUS 50 ML IV ONE (12:21)
[2024-01-06] MEDS ORDERED: LIDOCAINE 1% MDV 20ML VIAL As Ordered ONE (12:35)
[2024-01-06] MEDS ORDERED: ISOVUE-300 61% 100ML VIAL As Ordered ONE (12:35)
[2024-01-06 15:30] VITALS: BP 142/66; TEMP 96.3; O2SAT 97
== END 2024-01-06 15:50 | disposition home or self-care (01) ==
LOC: EDBD 09:41 → M ED 09:41
DX: T83.022A Displacement of nephrostomy catheter, initial encounter (principal); E11.9 Type 2 diabetes mellitus without complications; I12.9 Hypertensive chronic kidney disease with stage 1 through stage 4 chronic kidney disease, or unspecified chronic kidney disease; Z85.46 Personal history of malignant neoplasm of prostate; Z79.1 Long term (current) use of non-steroidal anti-inflammatories (NSAID); Z79.84 Long term (current) use of oral hypoglycemic drugs; Z79.810 Long term (current) use of selective estrogen receptor modulators (SERMs); Z79.899 Other long term (current) drug therapy
CPT/HCPCS: 50432; 74176; 80048; 81001; 85025; 87088; 87186; 96365; 99284; C1729; C1894; J0696; Q9967

== ENCOUNTER 2024-01-12 11:28 | Emergency (ER) | payer MEDICARE, MEDICAID ==
[~2024-01-12] VITALS: Ht 180.3 cm; Wt 75.5 kg
[2024-01-12] MEDS ORDERED: BICA50TA4 PO (11:54)
[2024-01-12] MEDS ORDERED: BUSP10TA PO (11:54)
[2024-01-12] MEDS ORDERED: BISO5TAB14 PO (11:54)
[2024-01-12] MEDS ORDERED: ALLO100T PO (11:54)
[2024-01-12] MEDS ORDERED: AMLO1TAB24 PO (11:54)
[2024-01-12] MEDS ORDERED: EZET1TAB98 PO (12:00)
[2024-01-12] MEDS ORDERED: PROP80CA PO (12:00)
[2024-01-12] MEDS ORDERED: DORZ10DR10 OU (12:00)
[2024-01-12] MEDS ORDERED: MELA5TAB7 PO (12:00)
[2024-01-12] MEDS ORDERED: FLOM0.4C39 PO (12:00)
[2024-01-12] MEDS ORDERED: FINA5TAB2 PO (12:00)
[2024-01-12] MEDS ORDERED: APAP325T4 PO (12:22)
[2024-01-12] MEDS ORDERED: GUAI600T54 PO (12:22)
[2024-01-12] MEDS ORDERED: ACET-683 PO (12:22)
[2024-01-12] MEDS ORDERED: FERR324T21 PO (12:22)
[2024-01-12] MEDS ORDERED: MILK400S12 PO (12:22)
[2024-01-12] MEDS ORDERED: BISA10SU4 PR (12:22)
[2024-01-12] MEDS ORDERED: HOME MED LIST COMPLETE! XX SCH (12:25)
[2024-01-12 13:16] LABS: BASO # 0.1 10^3/uL (0.0-0.2); BASO % 0.6 % (0.0-1.0); EOS # 0.5 10^3/uL (0.0-0.5); EOS % 5.3 % (0.0-3.0); HEMATOCRIT 35.3 % (42.0-52.0); HEMOGLOBIN 11.4 g/dl (13.5-17.5); LYMPH # 3.1 10^3/uL (1.5-5.0); LYMPH % 33.2 % (24.0-44.0); MEAN CORPUSCULAR HEMOGLOBIN 29.1 pg (27.0-33.0); MEAN CORPUSCULAR HGB CONC 32.3 g/dl (32.0-36.5); MEAN CORPUSCULAR VOLUME 90.1 fl (80.0-96.0); MONO # 0.8 10^3/uL (0.0-0.8); MONO % 8.4 % (2.0-8.0); NEUTROPHILS # 4.9 10^3/uL (1.5-8.5); NEUTROPHILS % 52.2 % (36.0-66.0); PLATELET COUNT, AUTOMATED 305 10^3/uL (150-450); RED BLOOD COUNT 3.92 10^6/uL (4.30-6.10); WHITE BLOOD COUNT 9.4 10^3/uL (4.0-10.0)
[2024-01-12 13:44] LABS: ALBUMIN 3.2 G/DL (3.2-5.2); BILIRUBIN,DIRECT 0.2 MG/DL (<0.4); BILIRUBIN,TOTAL 0.8 MG/DL (0.3-1.2); CALCIUM LEVEL 9.6 MG/DL (8.3-10.6); CREATININE FOR GFR 1.79 MG/DL (0.70-1.30); GLOMERULAR FILTRATION RATE 38.8 (>35); POTASSIUM SERUM 5.2 MMOL/L (3.5-5.1); TOTAL PROTEIN 6.9 G/DL (5.7-8.2)
[2024-01-12] MEDS: PATIROMER SORBITEX CALCIUM 8.4 GM POWDER PACKET (VELTASSA) PO ONE (14:23)
[2024-01-12 15:39] VITALS: BP 121/67; TEMP 97.7; O2SAT 98
== END 2024-01-12 15:41 | disposition home or self-care (01) ==
LOC: M ED 11:28
DX: E87.5 Hyperkalemia (principal); Z43.6 Encounter for attention to other artificial openings of urinary tract; E11.9 Type 2 diabetes mellitus without complications; I12.9 Hypertensive chronic kidney disease with stage 1 through stage 4 chronic kidney disease, or unspecified chronic kidney disease; Z85.46 Personal history of malignant neoplasm of prostate; Z79.1 Long term (current) use of non-steroidal anti-inflammatories (NSAID); Z79.899 Other long term (current) drug therapy

== ENCOUNTER → 2024-02-10 | Outpatient (REF) | payer MEDICARE, MEDICAID ==
[~2024-02-10] MED LIST changes: +ACET-683 PO; +ALLO100T PO; +APAP325T4 PO; +BISA10SU4 PR; +BUSP10TA PO; +DORZ10DR10 OU; +EZET1TAB98 PO; +FERR324T21 PO; +GUAI600T54 PO; +MELA5TAB7 PO; +MILK400S12 PO; +PROP80CA PO
[2024-02-10 08:52] LABS: HEMATOCRIT 32.4 % (42.0-52.0); HEMOGLOBIN 10.5 g/dl (13.5-17.5); MEAN CORPUSCULAR HEMOGLOBIN 29.2 pg (27.0-33.0); MEAN CORPUSCULAR HGB CONC 32.4 g/dl (32.0-36.5); PLATELET COUNT, AUTOMATED 275 10^3/uL (150-450); WHITE BLOOD COUNT 8.1 10^3/uL (4.0-10.0)
[2024-02-10 09:18] LABS: ALBUMIN 2.6 G/DL (3.2-5.2); BILIRUBIN,TOTAL 0.7 MG/DL (0.3-1.2); CALCIUM LEVEL 9.9 MG/DL (8.3-10.6); CREATININE FOR GFR 1.71 MG/DL (0.70-1.30); GLOMERULAR FILTRATION RATE 40.9 (>35); POTASSIUM SERUM 4.7 MMOL/L (3.5-5.1)
== END ==
LOC: SKLAB3 07:00
PROVIDERS: ATTEND Internal Medicine
DX: N18.9 Chronic kidney disease, unspecified (principal)

== ENCOUNTER → 2024-02-28 | Outpatient (REF) | payer MEDICARE, MEDICAID ==
[~2024-02-28] MED LIST changes: +AMLO2.5T3 PO; +FLUT15.820 NARES; +HYDR1CRE30 TOP; +LUPR45IN IM; +MILKSUS3 PO; +PROP60TA18 PO
[2024-02-28 09:51] LABS: CALCIUM LEVEL 9.6 MG/DL (8.3-10.6); CREATININE FOR GFR 1.6 MG/DL (0.70-1.30); GLOMERULAR FILTRATION RATE 44.1 (>35); POTASSIUM SERUM 4.7 MMOL/L (3.5-5.1)
== END ==
LOC: SKLAB3 07:13
PROVIDERS: ATTEND Internal Medicine
DX: E87.5 Hyperkalemia (principal)

== ENCOUNTER 2024-03-05 11:17 | Observation (INO) | payer MEDICARE, MEDICAID ==
[~2024-03-05] VITALS: Ht 180.3 cm; Wt 80.0 kg
[~2024-03-05 11:17] MED LIST changes: -AMLO2.5T3 PO; -FLUT15.820 NARES; -HYDR1CRE30 TOP; -LUPR45IN IM; -MILKSUS3 PO; -PROP60TA18 PO
[2024-03-05 13:11] LABS: BASO % 0.4 % (0.0-1.0); EOS # 0.4 10^3/uL (0.0-0.5); EOS % 3.5 % (0.0-3.0); HEMATOCRIT 32.5 % (42.0-52.0); HEMOGLOBIN 10.9 g/dl (13.5-17.5); LYMPH # 2.7 10^3/uL (1.5-5.0); MEAN CORPUSCULAR HEMOGLOBIN 29.9 pg (27.0-33.0); MEAN CORPUSCULAR HGB CONC 33.5 g/dl (32.0-36.5); MEAN CORPUSCULAR VOLUME 89.3 fl (80.0-96.0); MONO # 1.3 10^3/uL (0.0-0.8); MONO % 11.1 % (2.0-8.0); NEUTROPHILS # 6.9 10^3/uL (1.5-8.5); NEUTROPHILS % 60.6 % (36.0-66.0); PLATELET COUNT, AUTOMATED 276 10^3/uL (150-450); RED BLOOD COUNT 3.64 10^6/uL (4.30-6.10); WHITE BLOOD COUNT 11.3 10^3/uL (4.0-10.0)
[2024-03-05 13:41] LABS: ALBUMIN 2.9 G/DL (3.2-5.2); BILIRUBIN,TOTAL 0.9 MG/DL (0.3-1.2); CALCIUM LEVEL 9.5 MG/DL (8.3-10.6); CREATININE FOR GFR 1.59 MG/DL (0.70-1.30); GLOMERULAR FILTRATION RATE 44.4 (>35); POTASSIUM SERUM 4.9 MMOL/L (3.5-5.1); TOTAL PROTEIN 6.6 G/DL (5.7-8.2)
[2024-03-05] MEDS ORDERED: FLUT15.820 NARES (17:11)
[2024-03-05] MEDS ORDERED: AMLO2.5T3 PO (17:11)
[2024-03-05] MEDS ORDERED: PROP60TA18 PO (17:11)
[2024-03-05] MEDS ORDERED: MILKSUS3 PO (17:11)
[2024-03-05] MEDS ORDERED: LUPR45IN IM (17:11)
[2024-03-05] MEDS ORDERED: HYDR1CRE30 TOP (17:11)
[2024-03-05] MEDS ORDERED: HOME MED LIST COMPLETE! XX SCH (17:15)
[2024-03-05 20:19] VITALS: BP 144/65; TEMP 98.2; O2SAT 94
[2024-03-05 20:20] VITALS: BP 144/65; TEMP 98.2; O2SAT 94
[2024-03-05] MEDS ORDERED: BISACODYL 10MG SUPP PR PRN (20:20)
[2024-03-05] MEDS ORDERED: HYDROCORTISONE 1% CREAM 30GM TOP PRN (20:20)
[2024-03-05] MEDS: LATANOPROST 0.005% OPHTH SOLN 2.5 ML OU SCH (21:00)
[2024-03-05] MEDS: COSOPT OCUMETER PLUS 10ML (DORZOLAMIDE/TIMOLOL) OU SCH (21:00)
[2024-03-05] MEDS: guaiFENesin ER TABLET 600 MG TAB PO SCH (21:28)
[2024-03-05] MEDS: TAMSULOSIN 0.4 MG CAP PO SCH (21:28)
[2024-03-05] MEDS: FERROUS GLUCONATE 324 MG TAB PO SCH (21:28)
[2024-03-06 00:10] VITALS: BP 131/72; TEMP 97.3; O2SAT 96
[2024-03-06 04:00] VITALS: BP 137/60; TEMP 98.1; O2SAT 94
[2024-03-06] MEDS: ACETAMINOPHEN 500 MG TAB PO PRN (06:15)
[2024-03-06 06:31] LABS: HEMATOCRIT 31.9 % (42.0-52.0); HEMOGLOBIN 10.6 g/dl (13.5-17.5); MEAN CORPUSCULAR HEMOGLOBIN 29.2 pg (27.0-33.0); MEAN CORPUSCULAR HGB CONC 33.2 g/dl (32.0-36.5); MEAN CORPUSCULAR VOLUME 87.9 fl (80.0-96.0); PLATELET COUNT, AUTOMATED 275 10^3/uL (150-450); RED BLOOD COUNT 3.63 10^6/uL (4.30-6.10); WHITE BLOOD COUNT 9.2 10^3/uL (4.0-10.0)
[2024-03-06 06:48] LABS: INR 1.07; PROTHROMBIN TIME 14.2 SECONDS (12.5-14.5)
[2024-03-06 07:07] LABS: CALCIUM LEVEL 9.8 MG/DL (8.3-10.6); CREATININE FOR GFR 1.56 MG/DL (0.70-1.30); GLOMERULAR FILTRATION RATE 45.4 (>35); POTASSIUM SERUM 4.7 MMOL/L (3.5-5.1)
[2024-03-06 08:00] VITALS: BP 117/52; TEMP 97.5; O2SAT 96
[2024-03-06] MEDS: busPIRone 10 MG TAB PO SCH (09:15)
[2024-03-06] MEDS: allopurinoL 100 MG TAB PO SCH (09:16)
[2024-03-06] MEDS: FINASTERIDE 5MG TAB PO SCH (09:16)
[2024-03-06 09:17] VITALS: BP 139/67
[2024-03-06] MEDS: PROPRANOLOL 20 MG TAB PO SCH (09:17)
[2024-03-06] MEDS ORDERED: LIDOCAINE 1% MDV 20ML VIAL As Ordered ONE (11:03)
[2024-03-06] MEDS ORDERED: ISOVUE-300 61% 100ML VIAL As Ordered ONE (11:03)
[2024-03-06 11:30] VITALS: TEMP 97.5
[2024-03-06] MEDS ORDERED: CIPROFLOXACIN/D5W 400 MG/200 ML BAG As Ordered ONE (11:40)
[2024-03-06] MEDS: CIPROFLOXACIN 400 MG in IV 1 EA IV ONE (11:50)
[2024-03-06 12:55] VITALS: BP 165/80; O2SAT 100
== END 2024-03-06 13:30 ==
LOC: M ED 11:17 → M ED INP 11:18 → M MS5PR 20:00
PROVIDERS: ADMIT Student in an Organized Health Care Education/Training Program; ATTEND Student in an Organized Health Care Education/Training Program
DX: T83.022A Displacement of nephrostomy catheter, initial encounter (principal); Y73.2 Prosthetic and other implants, materials and accessory gastroenterology and urology devices associated with adverse incidents; D72.829 Elevated white blood cell count, unspecified; G25.0 Essential tremor; A49.8 Other bacterial infections of unspecified site; C61 Malignant neoplasm of prostate; I10 Essential (primary) hypertension; E11.9 Type 2 diabetes mellitus without complications; E78.5 Hyperlipidemia, unspecified; M10.9 Gout, unspecified; K59.00 Constipation, unspecified; F41.9 Anxiety disorder, unspecified; D50.9 Iron deficiency anemia, unspecified; Z90.89 Acquired absence of other organs; Z79.899 Other long term (current) drug therapy; Z79.82 Long term (current) use of aspirin
CPT/HCPCS: 36415; 50434; 76775; 80048; 80053; 81001; 85025; 85027; 85610; 87088; 87186; 99284; C2625; G0378; J0744; Q9967

== ENCOUNTER → 2024-03-07 | Outpatient (REF) | payer MEDICARE, MEDICAID ==
[~2024-03-07] MED LIST changes: +AMLO2.5T3 PO; +FLUT15.820 NARES; +HYDR1CRE30 TOP; +LUPR45IN IM; +MILKSUS3 PO; +PROP60TA18 PO
[2024-03-07 08:43] LABS: HEMOGLOBIN 10.4 g/dl (13.5-17.5); MEAN CORPUSCULAR HEMOGLOBIN 29.8 pg (27.0-33.0); MEAN CORPUSCULAR HGB CONC 33.5 g/dl (32.0-36.5); MEAN CORPUSCULAR VOLUME 88.8 fl (80.0-96.0); PLATELET COUNT, AUTOMATED 292 10^3/uL (150-450); RED BLOOD COUNT 3.49 10^6/uL (4.30-6.10)
[2024-03-07 09:19] LABS: ALBUMIN 2.7 G/DL (3.2-5.2); BILIRUBIN,TOTAL 0.9 MG/DL (0.3-1.2); CALCIUM LEVEL 9.4 MG/DL (8.3-10.6); CREATININE FOR GFR 1.91 MG/DL (0.70-1.30); GLOMERULAR FILTRATION RATE 35.9 (>35); POTASSIUM SERUM 4.5 MMOL/L (3.5-5.1); TOTAL PROTEIN 6.2 G/DL (5.7-8.2)
== END ==
LOC: SKLAB3 07:00
PROVIDERS: ATTEND Internal Medicine
DX: N18.9 Chronic kidney disease, unspecified (principal)

== ENCOUNTER → 2024-03-08 | Outpatient (CLI) | payer MEDICARE, MEDICAID ==
[~2024-03-08] MED LIST changes: +ISOVUE-300 61% 100ML VIAL As Ordered ONE; +LIDOCAINE 1% MDV 20ML VIAL As Ordered ONE
[2024-03-08 09:45] VITALS: TEMP 97.4
[2024-03-08 11:28] VITALS: BP 138/68; O2SAT 100
[2024-03-08] MEDS: CIPROFLOXACIN 500MG TABLET PO ONE (11:42)
== END ==
LOC: M IRPRO 09:27
PROVIDERS: ATTEND Nurse Practitioner Family
DX: T83.122A Displacement of indwelling ureteral stent, initial encounter (principal)
CPT/HCPCS: 50387; C2625; Q9967

== ENCOUNTER → 2024-03-14 | Outpatient (REF) | payer MEDICARE, MEDICAID ==
[~2024-03-14] MED LIST changes: -ISOVUE-300 61% 100ML VIAL As Ordered ONE; -LIDOCAINE 1% MDV 20ML VIAL As Ordered ONE
[2024-03-14 13:35] LABS: BASO % 0.4 % (0.0-1.0); EOS # 0.2 10^3/uL (0.0-0.5); HEMATOCRIT 35.3 % (42.0-52.0); HEMOGLOBIN 11.2 g/dl (13.5-17.5); LYMPH # 2.1 10^3/uL (1.5-5.0); LYMPH % 23.6 % (24.0-44.0); MEAN CORPUSCULAR HEMOGLOBIN 28.6 pg (27.0-33.0); MEAN CORPUSCULAR HGB CONC 31.7 g/dl (32.0-36.5); MEAN CORPUSCULAR VOLUME 90.3 fl (80.0-96.0); MONO # 1.1 10^3/uL (0.0-0.8); MONO % 11.8 % (2.0-8.0); NEUTROPHILS # 5.6 10^3/uL (1.5-8.5); NEUTROPHILS % 61.9 % (36.0-66.0); PLATELET COUNT, AUTOMATED 297 10^3/uL (150-450); RED BLOOD COUNT 3.91 10^6/uL (4.30-6.10)
[2024-03-14 14:06] LABS: CALCIUM LEVEL 9.5 MG/DL (8.3-10.6); CREATININE FOR GFR 1.77 MG/DL (0.70-1.30); GLOMERULAR FILTRATION RATE 39.2 (>35); POTASSIUM SERUM 4.6 MMOL/L (3.5-5.1); TOTAL PROTEIN 7.1 G/DL (5.7-8.2)
[2024-03-14 14:09] LABS: THYROID STIMULATING HORMONE 2.061 uIU/ML (0.55-4.78)
== END ==
LOC: SKLAB3 13:06
PROVIDERS: ATTEND Internal Medicine
DX: R25.1 Tremor, unspecified (principal)

== ENCOUNTER → 2024-03-21 | Outpatient (REF) | payer MEDICARE, MEDICAID ==
[2024-03-21 11:03] LABS: BASO % 0.5 % (0.0-1.0); EOS # 0.2 10^3/uL (0.0-0.5); EOS % 1.9 % (0.0-3.0); HEMATOCRIT 29.6 % (42.0-52.0); HEMOGLOBIN 9.7 g/dl (13.5-17.5); LYMPH # 1.8 10^3/uL (1.5-5.0); LYMPH % 21.2 % (24.0-44.0); MEAN CORPUSCULAR HEMOGLOBIN 28.9 pg (27.0-33.0); MEAN CORPUSCULAR HGB CONC 32.8 g/dl (32.0-36.5); MEAN CORPUSCULAR VOLUME 88.1 fl (80.0-96.0); MONO % 11.2 % (2.0-8.0); NEUTROPHILS # 5.6 10^3/uL (1.5-8.5); NEUTROPHILS % 64.6 % (36.0-66.0); PLATELET COUNT, AUTOMATED 350 10^3/uL (150-450); RED BLOOD COUNT 3.36 10^6/uL (4.30-6.10); WHITE BLOOD COUNT 8.6 10^3/uL (4.0-10.0)
[2024-03-21 11:28] LABS: CALCIUM LEVEL 9.1 MG/DL (8.3-10.6); CREATININE FOR GFR 2.08 MG/DL (0.70-1.30); GLOMERULAR FILTRATION RATE 32.5 (>35); PSA SCREENING 0.59 NG/ML (< 4.00)
== END ==
LOC: SKLAB3 07:00
PROVIDERS: ATTEND Internal Medicine
DX: N18.9 Chronic kidney disease, unspecified (principal); C61 Malignant neoplasm of prostate; Z12.5 Encounter for screening for malignant neoplasm of prostate
CPT/HCPCS: 36415; 80048; 85025; G0103

== ENCOUNTER → 2024-03-27 | Outpatient (REF) | payer MEDICARE, MEDICAID ==
[2024-03-27 11:22] LABS: HEMATOCRIT 31.5 % (42.0-52.0); HEMOGLOBIN 10.1 g/dl (13.5-17.5); MEAN CORPUSCULAR HEMOGLOBIN 28.7 pg (27.0-33.0); MEAN CORPUSCULAR HGB CONC 32.1 g/dl (32.0-36.5); MEAN CORPUSCULAR VOLUME 89.5 fl (80.0-96.0); PLATELET COUNT, AUTOMATED 350 10^3/uL (150-450); RED BLOOD COUNT 3.52 10^6/uL (4.30-6.10); WHITE BLOOD COUNT 9.4 10^3/uL (4.0-10.0)
[2024-03-27 11:32] LABS: INR 1.08; PROTHROMBIN TIME 14.3 SECONDS (12.5-14.5)
[2024-03-27 11:50] LABS: CALCIUM LEVEL 9.4 MG/DL (8.3-10.6); CREATININE FOR GFR 1.58 MG/DL (0.70-1.30); GLOMERULAR FILTRATION RATE 44.7 (>35)
== END ==
LOC: SKLAB3 10:12
PROVIDERS: ATTEND Internal Medicine
DX: Z01.818 Encounter for other preprocedural examination (principal)

== ENCOUNTER → 2024-03-28 | Outpatient (CLI) | payer MEDICARE, MEDICAID ==
[~2024-03-28] MED LIST changes: +ACETAMINOPHEN 325 MG TAB PO PRN; +CIPROFLOXACIN/D5W 400 MG/200 ML BAG As Ordered ONE; +ISOVUE-300 61% 100ML VIAL As Ordered ONE; +LIDOCAINE 1% MDV 20ML VIAL As Ordered ONE; +MIDAZOLAM INJ 2MG/2ML VIAL As Ordered ONE; +NS 1,000 ML IV SCH; +fentaNYL 100 MCG/2 ML INJECTION As Ordered ONE
[2024-03-28 14:36] VITALS: TEMP 96.8
[2024-03-28] MEDS: CIPROFLOXACIN 400 MG in IV 1 EA IV ONE (14:57)
[2024-03-28 17:27] VITALS: BP 176/81; O2SAT 97
== END ==
LOC: M IRPRO 14:03 → EEVIPCON 04-06 13:00
PROVIDERS: ATTEND Radiology Diagnostic Radiology
DX: N13.9 Obstructive and reflux uropathy, unspecified (principal)
CPT/HCPCS: 50435; 99152; 99153; C1729; J0744; J2250; J3010; Q9967

== ENCOUNTER → 2024-04-04 | Outpatient (REF) | payer MEDICARE, MEDICAID ==
[~2024-04-04] MED LIST changes: -ACETAMINOPHEN 325 MG TAB PO PRN; -CIPROFLOXACIN/D5W 400 MG/200 ML BAG As Ordered ONE; -ISOVUE-300 61% 100ML VIAL As Ordered ONE; -LIDOCAINE 1% MDV 20ML VIAL As Ordered ONE; -MIDAZOLAM INJ 2MG/2ML VIAL As Ordered ONE; -NS 1,000 ML IV SCH; -fentaNYL 100 MCG/2 ML INJECTION As Ordered ONE
[2024-04-04 09:34] LABS: HEMATOCRIT 35.3 % (42.0-52.0); HEMOGLOBIN 11.3 g/dl (13.5-17.5); MEAN CORPUSCULAR HEMOGLOBIN 28.9 pg (27.0-33.0); MEAN CORPUSCULAR VOLUME 90.3 fl (80.0-96.0); PLATELET COUNT, AUTOMATED 319 10^3/uL (150-450); RED BLOOD COUNT 3.91 10^6/uL (4.30-6.10); WHITE BLOOD COUNT 8.7 10^3/uL (4.0-10.0)
[2024-04-04 09:54] LABS: ALBUMIN 2.9 G/DL (3.2-5.2); BILIRUBIN,TOTAL 0.7 MG/DL (0.3-1.2); CALCIUM LEVEL 10.1 MG/DL (8.3-10.6); CREATININE FOR GFR 1.72 MG/DL (0.70-1.30); GLOMERULAR FILTRATION RATE 40.5 (>35); POTASSIUM SERUM 5.1 MMOL/L (3.5-5.1); TOTAL PROTEIN 7.2 G/DL (5.7-8.2)
== END ==
LOC: SKLAB3 07:00
PROVIDERS: ATTEND Internal Medicine
DX: N18.30 Chronic kidney disease, stage 3 unspecified (principal); Z79.899 Other long term (current) drug therapy

== ENCOUNTER → 2024-05-04 | Outpatient (REF) | payer MEDICARE, MEDICAID ==
[2024-05-04 14:15] LABS: BASO # 0.1 10^3/uL (0.0-0.2); BASO % 0.7 % (0.0-1.0); EOS # 0.4 10^3/uL (0.0-0.5); HEMATOCRIT 39.8 % (42.0-52.0); HEMOGLOBIN 12.8 g/dl (13.5-17.5); LYMPH # 2.5 10^3/uL (1.5-5.0); LYMPH % 29.9 % (24.0-44.0); MEAN CORPUSCULAR HEMOGLOBIN 29.4 pg (27.0-33.0); MEAN CORPUSCULAR HGB CONC 32.2 g/dl (32.0-36.5); MEAN CORPUSCULAR VOLUME 91.3 fl (80.0-96.0); MONO # 0.6 10^3/uL (0.0-0.8); MONO % 7.7 % (2.0-8.0); NEUTROPHILS # 4.7 10^3/uL (1.5-8.5); NEUTROPHILS % 56.5 % (36.0-66.0); PLATELET COUNT, AUTOMATED 276 10^3/uL (150-450); RED BLOOD COUNT 4.36 10^6/uL (4.30-6.10); WHITE BLOOD COUNT 8.3 10^3/uL (4.0-10.0)
[2024-05-04 14:44] LABS: CALCIUM LEVEL 9.2 MG/DL (8.3-10.6); CREATININE FOR GFR 1.64 MG/DL (0.70-1.30); GLOMERULAR FILTRATION RATE 42.8 (>35); POTASSIUM SERUM 4.8 MMOL/L (3.5-5.1)
== END ==
LOC: SKLAB3 12:36
PROVIDERS: ATTEND Internal Medicine
DX: N18.30 Chronic kidney disease, stage 3 unspecified (principal); E11.9 Type 2 diabetes mellitus without complications

== ENCOUNTER → 2024-05-04 | Outpatient (CLI) | payer MEDICARE, MEDICAID | LOC: M RAD 13:45 | PROVIDERS: ATTEND Nurse Practitioner Family | DX: N13.30 Unspecified hydronephrosis (principal); N28.1 Cyst of kidney, acquired; K57.30 Diverticulosis of large intestine without perforation or abscess without bleeding; K40.90 Unilateral inguinal hernia, without obstruction or gangrene, not specified as recurrent; R59.0 Localized enlarged lymph nodes; K80.50 Calculus of bile duct without cholangitis or cholecystitis without obstruction; E27.8 Other specified disorders of adrenal gland; N32.9 Bladder disorder, unspecified ==

== ENCOUNTER 2024-05-09 15:55 | Emergency (ER) | payer MEDICARE, MEDICAID ==
[~2024-05-09] VITALS: Ht 180.3 cm; Wt 83.6 kg
[2024-05-09 18:22] LABS: BASO % 0.5 % (0.0-1.0); EOS # 0.5 10^3/uL (0.0-0.5); EOS % 5.9 % (0.0-3.0); HEMATOCRIT 38.6 % (42.0-52.0); HEMOGLOBIN 12.7 g/dl (13.5-17.5); LYMPH # 2.7 10^3/uL (1.5-5.0); LYMPH % 34.3 % (24.0-44.0); MEAN CORPUSCULAR HEMOGLOBIN 29.5 pg (27.0-33.0); MEAN CORPUSCULAR HGB CONC 32.9 g/dl (32.0-36.5); MEAN CORPUSCULAR VOLUME 89.6 fl (80.0-96.0); MONO # 0.8 10^3/uL (0.0-0.8); MONO % 9.6 % (2.0-8.0); NEUTROPHILS % 49.4 % (36.0-66.0); PLATELET COUNT, AUTOMATED 274 10^3/uL (150-450); RED BLOOD COUNT 4.31 10^6/uL (4.30-6.10)
[2024-05-09 18:43] LABS: CALCIUM LEVEL 9.5 MG/DL (8.3-10.6); CREATININE FOR GFR 1.66 MG/DL (0.70-1.30); GLOMERULAR FILTRATION RATE 42.2 (>35); POTASSIUM SERUM 4.9 MMOL/L (3.5-5.1)
[2024-05-09 19:12] LABS: ALBUMIN 3.1 G/DL (3.2-5.2); BILIRUBIN,DIRECT 0.1 MG/DL (<0.4); BILIRUBIN,TOTAL 0.8 MG/DL (0.3-1.2)
[2024-05-09] MEDS: LATANOPROST 0.005% OPHTH SOLN 2.5 ML OU SCH (21:00)
[2024-05-09] MEDS ORDERED: ACETAMINOPHEN 325 MG TAB PO PRN (22:10)
[2024-05-09] MEDS ORDERED: GLUCOSE 4 GM CHEW PO PRN (22:35)
[2024-05-09] MEDS ORDERED: DEXTROSE 50% 50ML SYRINGE IV PRN (22:35)
[2024-05-09] MEDS ORDERED: GLUCAGON INJ 1MG VIAL SC PRN (22:35)
[2024-05-10] MEDS ORDERED: LUPR45IN IM (01:39)
[2024-05-10] MEDS ORDERED: PROP40TA62 PO (01:48)
[2024-05-10] MEDS ORDERED: BUSP15TA47 PO (01:48)
[2024-05-10] MEDS ORDERED: BISA10SU4 PR (01:48)
[2024-05-10] MEDS ORDERED: MILKSUS3 PO (01:48)
[2024-05-10] MEDS ORDERED: ACET1TAB55 PO (01:48)
[2024-05-10] MEDS ORDERED: ACET-683 PO (01:48)
[2024-05-10] MEDS ORDERED: SFHHYD1CR TOP (01:48)
[2024-05-10] MEDS ORDERED: REFR0.5D8 OU (01:48)
[2024-05-10] MEDS ORDERED: FERR32TA PO (01:48)
[2024-05-10] MEDS ORDERED: [UNRECOGNIZED DRUG - CODE] TOP (01:48)
[2024-05-10] MEDS ORDERED: HOME MED LIST COMPLETE! XX SCH (01:50)
[2024-05-10] MEDS ORDERED: ACETAMINOPHEN 500 MG TAB PO PRN (02:55)
[2024-05-10] MEDS ORDERED: BISACODYL 10MG SUPP PR PRN (02:55)
[2024-05-10] MEDS ORDERED: MOM 30ML SUSPENSION UDC PO PRN (02:55)
[2024-05-10] MEDS: INSULIN LISPRO (NovoLOG) PER UNIT SC SCH (07:30)
[2024-05-10 08:09] LABS: HEMATOCRIT 37.5 % (42.0-52.0); HEMOGLOBIN 12.4 g/dl (13.5-17.5); MEAN CORPUSCULAR HEMOGLOBIN 29.2 pg (27.0-33.0); MEAN CORPUSCULAR HGB CONC 33.1 g/dl (32.0-36.5); MEAN CORPUSCULAR VOLUME 88.4 fl (80.0-96.0); PLATELET COUNT, AUTOMATED 258 10^3/uL (150-450); RED BLOOD COUNT 4.24 10^6/uL (4.30-6.10); WHITE BLOOD COUNT 7.8 10^3/uL (4.0-10.0)
[2024-05-10] MEDS: FINASTERIDE 5MG TAB PO SCH (08:24)
[2024-05-10] MEDS: HYDROCORTISONE 1% CREAM 30GM TOP SCH (08:25)
[2024-05-10] MEDS: busPIRone 5 MG TAB PO SCH (08:25)
[2024-05-10] MEDS: allopurinoL 100 MG TAB PO SCH (08:25)
[2024-05-10 08:34] LABS: BILIRUBIN,TOTAL 1.2 MG/DL (0.3-1.2); CREATININE FOR GFR 1.6 MG/DL (0.70-1.30); GLOMERULAR FILTRATION RATE 44.1 (>35); POTASSIUM SERUM 4.5 MMOL/L (3.5-5.1); TOTAL PROTEIN 6.9 G/DL (5.7-8.2)
[2024-05-10 10:23] VITALS: BP 128/60
[2024-05-10] MEDS: PROPRANOLOL 20 MG TAB PO SCH (10:23)
[2024-05-10] MEDS: COSOPT OCUMETER PLUS 10ML (DORZOLAMIDE/TIMOLOL) OU SCH (10:25)
[2024-05-10] MEDS: FLUTICASONE PROP 0.05% NASAL SPRAY 16 GM (FLONASE) NARES SCH (10:25)
[2024-05-10] MEDS: FERROUS GLUCONATE 324 MG TAB PO SCH (10:25)
[2024-05-10 13:42] VITALS: BP 176/94; TEMP 96.9; O2SAT 99
[2024-05-10] MEDS ORDERED: INSULIN LISPRO (NovoLOG) PER UNIT SC SCH (21:00)
== END 2024-05-10 13:47 | disposition short-term general hospital (02) ==
LOC: M ED 15:55
DX: T83.092A Other mechanical complication of nephrostomy catheter, initial encounter (principal); C61 Malignant neoplasm of prostate; E11.9 Type 2 diabetes mellitus without complications; I10 Essential (primary) hypertension; E78.5 Hyperlipidemia, unspecified; Z79.1 Long term (current) use of non-steroidal anti-inflammatories (NSAID); Z79.899 Other long term (current) drug therapy
CPT/HCPCS: 74176; 80048; 80053; 80076; 83690; 85025; 85027; 93041; 96372; 99284; J1815

== ENCOUNTER → 2024-05-15 | Outpatient (REF) | payer MEDICARE, MEDICAID ==
[~2024-05-15] MED LIST changes: +ACET1TAB55 PO; +BUSP15TA47 PO; +FERR32TA PO; +PROP40TA62 PO; +REFR0.5D8 OU; +SFHHYD1CR TOP; +[UNRECOGNIZED DRUG - CODE] TOP
[2024-05-15 12:19] LABS: HEMATOCRIT 37.1 % (42.0-52.0); HEMOGLOBIN 12.1 g/dl (13.5-17.5); MEAN CORPUSCULAR HEMOGLOBIN 28.9 pg (27.0-33.0); MEAN CORPUSCULAR HGB CONC 32.6 g/dl (32.0-36.5); MEAN CORPUSCULAR VOLUME 88.8 fl (80.0-96.0); PLATELET COUNT, AUTOMATED 240 10^3/uL (150-450); RED BLOOD COUNT 4.18 10^6/uL (4.30-6.10); WHITE BLOOD COUNT 7.4 10^3/uL (4.0-10.0)
[2024-05-15 13:26] LABS: ALBUMIN 2.9 G/DL (3.2-5.2); BILIRUBIN,TOTAL 0.7 MG/DL (0.3-1.2); CALCIUM LEVEL 9.4 MG/DL (8.3-10.6); CREATININE FOR GFR 1.79 MG/DL (0.70-1.30); GLOMERULAR FILTRATION RATE 38.7 (>35); POTASSIUM SERUM 4.2 MMOL/L (3.5-5.1); TOTAL PROTEIN 6.8 G/DL (5.7-8.2)
== END ==
LOC: SKLAB3 10:56
PROVIDERS: ATTEND Internal Medicine
DX: N39.0 Urinary tract infection, site not specified (principal)

== ENCOUNTER → 2024-05-19 | Outpatient (REF) | payer MEDICARE, MEDICAID | LOC: SKLAB3 15:39 | PROVIDERS: ATTEND Internal Medicine | DX: Z53.9 Procedure and treatment not carried out, unspecified reason (principal) ==

== ENCOUNTER → 2024-05-19 | Outpatient (REF) | payer MEDICARE, MEDICAID ==
[2024-05-19 11:03] LABS: HEMATOCRIT 37.7 % (42.0-52.0); HEMOGLOBIN 12.3 g/dl (13.5-17.5); MEAN CORPUSCULAR HEMOGLOBIN 29.1 pg (27.0-33.0); MEAN CORPUSCULAR HGB CONC 32.6 g/dl (32.0-36.5); MEAN CORPUSCULAR VOLUME 89.3 fl (80.0-96.0); PLATELET COUNT, AUTOMATED 250 10^3/uL (150-450); RED BLOOD COUNT 4.22 10^6/uL (4.30-6.10); WHITE BLOOD COUNT 10.8 10^3/uL (4.0-10.0)
[2024-05-19 11:15] LABS: HEMOGLOBIN A1c 6.5 % (4.0-6.0)
[2024-05-19 11:35] LABS: ALBUMIN 2.9 G/DL (3.2-5.2); BILIRUBIN,TOTAL 0.9 MG/DL (0.3-1.2); CALCIUM LEVEL 9.1 MG/DL (8.3-10.6); CREATININE FOR GFR 1.7 MG/DL (0.70-1.30); GLOMERULAR FILTRATION RATE 41.1 (>35); POTASSIUM SERUM 4.7 MMOL/L (3.5-5.1); TOTAL PROTEIN 6.6 G/DL (5.7-8.2)
== END ==
LOC: SKLAB3 07:00
PROVIDERS: ATTEND Internal Medicine
DX: E11.22 Type 2 diabetes mellitus with diabetic chronic kidney disease (principal); N18.9 Chronic kidney disease, unspecified

== ENCOUNTER → 2024-05-19 | Outpatient (REF) | payer MEDICARE, MEDICAID ==
[2024-05-19 15:56] LABS: AMORPHOUS SEDIMENT SMALL (NEGATIVE); APPEARANCE, URINE CLOUDY (CLEAR); BACTERIA, URINE AUTO 1+ (NEGATIVE); BILIRUBIN, URINE AUTO 1+ (NEGATIVE); BLOOD, URINE BLOOD NEGATIVE (NEGATIVE); COLOR, URINE YELLOW (YELLOW); GLUCOSE, URINE (UA) AUTO NEGATIVE (NEGATIVE); KETONE, URINE AUTO NEGATIVE (NEGATIVE); LEUKOCYTE ESTERASE, URINE AUTO 3+ (NEGATIVE); MUCUS, URINE SMALL (NEGATIVE); NITRITE, URINE AUTO NEGATIVE (NEGATIVE); PROTEIN, URINE AUTO 3+ mg/dL (NEGATIVE); RBC, URINE AUTO 3 /HPF (0-3); SPECIFIC GRAVITY URINE AUTO 1.015 (1.002-1.035); SQUAMOUS EPITHELIAL CELL UR AU 0 /HPF (0-6); TRIPLE PHOSPHATE CRYSTALS LARGE; UROBILINOGEN, URINE AUTO 0.2 mg/dL (0.0-2.0); WBC, URINE AUTO 18 /HPF (0-3)
== END ==
LOC: SKLAB3 15:24
PROVIDERS: ATTEND Internal Medicine
DX: N39.0 Urinary tract infection, site not specified (principal)

== ENCOUNTER → 2024-06-06 | Outpatient (REF) | payer MEDICARE, MEDICAID ==
[2024-06-06 08:39] LABS: HEMATOCRIT 35.1 % (42.0-52.0); HEMOGLOBIN 11.2 g/dl (13.5-17.5); MEAN CORPUSCULAR HEMOGLOBIN 28.6 pg (27.0-33.0); MEAN CORPUSCULAR HGB CONC 31.9 g/dl (32.0-36.5); MEAN CORPUSCULAR VOLUME 89.8 fl (80.0-96.0); PLATELET COUNT, AUTOMATED 296 10^3/uL (150-450); RED BLOOD COUNT 3.91 10^6/uL (4.30-6.10)
[2024-06-06 09:11] LABS: ALBUMIN 2.7 G/DL (3.2-5.2); BILIRUBIN,TOTAL 0.6 MG/DL (0.3-1.2); CALCIUM LEVEL 9.7 MG/DL (8.3-10.6); CREATININE FOR GFR 1.69 MG/DL (0.70-1.30); GLOMERULAR FILTRATION RATE 41.4 (>35); POTASSIUM SERUM 4.8 MMOL/L (3.5-5.1); TOTAL PROTEIN 6.3 G/DL (5.7-8.2)
== END ==
LOC: SKLAB3 07:00
PROVIDERS: ATTEND Internal Medicine
DX: N18.9 Chronic kidney disease, unspecified (principal)

== ENCOUNTER → 2024-06-15 | Outpatient (CLI) | payer MEDICARE, MEDICAID ==
[~2024-06-15] MED LIST changes: +CIPROFLOXACIN/D5W 400 MG/200 ML BAG As Ordered ONE
[2024-06-15 09:40] VITALS: TEMP 97.4
[2024-06-15] MEDS: CIPROFLOXACIN 400 MG in IV 1 EA IV ONE (10:00)
[2024-06-15] MEDS: fentaNYL 100 MCG/2 ML INJECTION IV STA (10:36)
[2024-06-15] MEDS: MIDAZOLAM INJ 2MG/2ML VIAL IV STA (10:37)
[2024-06-15] MEDS: ISOVUE-300 61% 100ML VIAL IV ONE (10:53)
[2024-06-15] MEDS: LIDOCAINE 1% MDV 20ML VIAL SC ONE (10:54)
[2024-06-15 11:10] VITALS: BP 152/76; O2SAT 99
== END ==
LOC: M IRPRO 09:24
PROVIDERS: ATTEND Nurse Practitioner Family
DX: T83.092A Other mechanical complication of nephrostomy catheter, initial encounter (principal)
CPT/HCPCS: 50435; 99152; 99153; C1729; J0744; J2250; J3010; Q9967

== ENCOUNTER → 2024-07-04 | Outpatient (REF) | payer MEDICARE, MEDICAID ==
[~2024-07-04] MED LIST changes: -CIPROFLOXACIN/D5W 400 MG/200 ML BAG As Ordered ONE
[2024-07-04 07:42] LABS: HEMATOCRIT 36.7 % (42.0-52.0); MEAN CORPUSCULAR HEMOGLOBIN 29.1 pg (27.0-33.0); MEAN CORPUSCULAR HGB CONC 32.7 g/dl (32.0-36.5); MEAN CORPUSCULAR VOLUME 88.9 fl (80.0-96.0); PLATELET COUNT, AUTOMATED 291 10^3/uL (150-450); RED BLOOD COUNT 4.13 10^6/uL (4.30-6.10); WHITE BLOOD COUNT 10.3 10^3/uL (4.0-10.0)
[2024-07-04 08:05] LABS: ALBUMIN 2.9 G/DL (3.2-5.2); BILIRUBIN,TOTAL 0.8 MG/DL (0.3-1.2); CALCIUM LEVEL 9.7 MG/DL (8.3-10.6); CREATININE FOR GFR 1.89 MG/DL (0.70-1.30); GLOMERULAR FILTRATION RATE 36.4 (>35); POTASSIUM SERUM 4.7 MMOL/L (3.5-5.1); TOTAL PROTEIN 6.6 G/DL (5.7-8.2)
== END ==
LOC: SKLAB3 07:00
PROVIDERS: ATTEND Internal Medicine
DX: N18.30 Chronic kidney disease, stage 3 unspecified (principal); Z79.899 Other long term (current) drug therapy

== ENCOUNTER → 2024-08-08 | Outpatient (REF) | payer MEDICARE, MEDICAID ==
[~2024-08-08] MED LIST changes: -FLOM0.4C39 PO; +TAMS-18 PO
[2024-08-08 07:49] LABS: HEMATOCRIT 35.6 % (42.0-52.0); HEMOGLOBIN 11.6 g/dl (13.5-17.5); MEAN CORPUSCULAR HEMOGLOBIN 29.4 pg (27.0-33.0); MEAN CORPUSCULAR HGB CONC 32.6 g/dl (32.0-36.5); MEAN CORPUSCULAR VOLUME 90.4 fl (80.0-96.0); PLATELET COUNT, AUTOMATED 271 10^3/uL (150-450); RED BLOOD COUNT 3.94 10^6/uL (4.30-6.10); WHITE BLOOD COUNT 7.2 10^3/uL (4.0-10.0)
[2024-08-08 08:16] LABS: ALBUMIN 2.9 G/DL (3.2-5.2); BILIRUBIN,TOTAL 0.7 MG/DL (0.3-1.2); CALCIUM LEVEL 9.8 MG/DL (8.3-10.6); CREATININE FOR GFR 1.8 MG/DL (0.70-1.30); GLOMERULAR FILTRATION RATE 36.7 (>35); TOTAL PROTEIN 6.3 G/DL (5.7-8.2)
== END ==
LOC: SKLAB3 07:00
PROVIDERS: ATTEND Internal Medicine
DX: N18.30 Chronic kidney disease, stage 3 unspecified (principal); Z79.899 Other long term (current) drug therapy

== ENCOUNTER → 2024-08-21 | Outpatient (REF) | payer MEDICARE, MEDICAID | LOC: SKLAB3 07:59 | PROVIDERS: ATTEND Internal Medicine | DX: R97.20 Elevated prostate specific antigen [PSA] (principal); Z12.5 Encounter for screening for malignant neoplasm of prostate | CPT/HCPCS: 36415; G0103 ==

== ENCOUNTER → 2024-09-04 | Outpatient (REF) | payer MEDICARE, MEDICAID ==
[~2024-09-04] MED LIST changes: +MELA5TAB44 PO; -MELA5TAB7 PO
== END ==
LOC: SKLAB3 11:24
PROVIDERS: ATTEND Internal Medicine
DX: R05.9 Cough, unspecified (principal)

== ENCOUNTER → 2024-10-10 | Outpatient (REF) | payer MEDICARE, MEDICAID ==
[2024-10-10 08:36] LABS: HEMATOCRIT 36.5 % (42.0-52.0); MEAN CORPUSCULAR HEMOGLOBIN 29.9 pg (27.0-33.0); MEAN CORPUSCULAR HGB CONC 32.9 g/dl (32.0-36.5); PLATELET COUNT, AUTOMATED 251 10^3/uL (150-450); RED BLOOD COUNT 4.01 10^6/uL (4.30-6.10); WHITE BLOOD COUNT 7.5 10^3/uL (4.0-10.0)
[2024-10-10 08:53] LABS: ALBUMIN 3.2 G/DL (3.2-5.2); BILIRUBIN,TOTAL 1.1 MG/DL (0.3-1.2); CALCIUM LEVEL 9.7 MG/DL (8.3-10.6); CREATININE FOR GFR 1.9 MG/DL (0.70-1.30); GLOMERULAR FILTRATION RATE 34.4 (>35); POTASSIUM SERUM 4.5 MMOL/L (3.5-5.1); TOTAL PROTEIN 6.9 G/DL (5.7-8.2)
== END ==
LOC: SKLAB3 07:00
PROVIDERS: ATTEND Internal Medicine
DX: N18.9 Chronic kidney disease, unspecified (principal)

== ENCOUNTER → 2024-11-07 | Outpatient (REF) | payer MEDICARE, MEDICAID ==
[2024-11-07 08:29] LABS: PLATELET COUNT, AUTOMATED 270 10^3/uL (150-450)
[2024-11-07 08:51] LABS: ALT/SGPT 14.0 U/L (7.0-40); AST/SGOT 19.0 U/L (<34); CALCIUM LEVEL 9.5 MG/DL (8.3-10.6); CARBON DIOXIDE LEVEL 24.0 MMOL/L (20-31); CHLORIDE LEVEL 104.0 MMOL/L (98-107); CREATININE FOR GFR 1.99 MG/DL (0.70-1.30); GLOMERULAR FILTRATION RATE 32.5 (>35); POTASSIUM SERUM 4.9 MMOL/L (3.5-5.1); SODIUM LEVEL 141.0 MMOL/L (136-145)
[2024-11-07 09:23] LABS: ESTIMATED AVERAGE GLUCOSE 137.0 MG/DL (60-110)
== END ==
LOC: SKLAB3 07:00
PROVIDERS: ATTEND Internal Medicine
DX: E11.22 Type 2 diabetes mellitus with diabetic chronic kidney disease (principal); N18.9 Chronic kidney disease, unspecified

== ENCOUNTER → 2024-12-09 | Outpatient (REF) | payer MEDICARE, MEDICAID ==
[2024-12-09 11:55] LABS: PLATELET COUNT, AUTOMATED 306 10^3/uL (150-450)
[2024-12-09 12:27] LABS: CALCIUM LEVEL 9.1 MG/DL (8.3-10.6); CARBON DIOXIDE LEVEL 22.0 MMOL/L (20-31); CHLORIDE LEVEL 105.0 MMOL/L (98-107); CREATININE FOR GFR 2.08 MG/DL (0.70-1.30); GLOMERULAR FILTRATION RATE 30.8 (>35); POTASSIUM SERUM 4.7 MMOL/L (3.5-5.1); SODIUM LEVEL 139.0 MMOL/L (136-145)
[2024-12-09 21:44] LABS: AMORPHOUS SEDIMENT MODERATE (NEGATIVE); APPEARANCE, URINE TURBID (CLEAR); BACTERIA, URINE AUTO 1+ (NEGATIVE); BILIRUBIN, URINE AUTO NEGATIVE (NEGATIVE); BLOOD, URINE BLOOD 1+ (NEGATIVE); GLUCOSE, URINE (UA) AUTO NEGATIVE (NEGATIVE); KETONE, URINE AUTO NEGATIVE (NEGATIVE); LEUKOCYTE ESTERASE, URINE AUTO 2+ (NEGATIVE); MUCUS, URINE SMALL (NEGATIVE); NITRITE, URINE AUTO NEGATIVE (NEGATIVE); PROTEIN, URINE AUTO 3+ mg/dL (NEGATIVE); RBC, URINE AUTO 29 /HPF (0-3); SPECIFIC GRAVITY URINE AUTO 1.014 (1.002-1.035); SQUAMOUS EPITHELIAL CELL UR AU 1 /HPF (0-6); TRIPLE PHOSPHATE CRYSTALS SMALL; UROBILINOGEN, URINE AUTO 0.2 mg/dL (0.0-2.0); WBC, URINE AUTO TNTC /HPF (0-3)
== END ==
LOC: M LAB 10:26 → SKLAB3 10:26
PROVIDERS: ATTEND Internal Medicine
DX: R50.9 Fever, unspecified (principal)

== ENCOUNTER → 2024-12-11 | Outpatient (REF) | payer MEDICARE, MEDICAID ==
[2024-12-11 13:24] LABS: BASO # 0.0 10^3/uL (0.0-0.2); BASO % 0.5 % (0.0-1.0); EOS # 0.3 10^3/uL (0.0-0.5); EOS % 3.2 % (0.0-3.0); LYMPH # 2.5 10^3/uL (1.5-5.0); LYMPH % 29.6 % (24.0-44.0); MONO # 0.8 10^3/uL (0.0-0.8); MONO % 9.6 % (2.0-8.0); NEUTROPHILS # 4.7 10^3/uL (1.5-8.5); NEUTROPHILS % 56.9 % (36.0-66.0); PLATELET COUNT, AUTOMATED 305 10^3/uL (150-450)
[2024-12-11 13:58] LABS: CALCIUM LEVEL 9.7 MG/DL (8.3-10.6); CARBON DIOXIDE LEVEL 23.0 MMOL/L (20-31); CHLORIDE LEVEL 109.0 MMOL/L (98-107); CREATININE FOR GFR 2.13 MG/DL (0.70-1.30); GLOMERULAR FILTRATION RATE 30.0 (>35); POTASSIUM SERUM 4.9 MMOL/L (3.5-5.1); SODIUM LEVEL 142.0 MMOL/L (136-145)
== END ==
LOC: SKLAB3 12:27
PROVIDERS: ATTEND Internal Medicine
DX: N39.0 Urinary tract infection, site not specified (principal)

== ENCOUNTER → 2024-12-12 | Outpatient (REF) | payer MEDICARE, MEDICAID ==
[2024-12-12 09:09] LABS: PLATELET COUNT, AUTOMATED 311 10^3/uL (150-450)
[2024-12-12 09:40] LABS: ALT/SGPT 12.0 U/L (7.0-40); AST/SGOT 20.0 U/L (<34); CALCIUM LEVEL 9.9 MG/DL (8.3-10.6); CARBON DIOXIDE LEVEL 23.0 MMOL/L (20-31); CHLORIDE LEVEL 107.0 MMOL/L (98-107); CREATININE FOR GFR 2.27 MG/DL (0.70-1.30); GLOMERULAR FILTRATION RATE 27.8 (>35); POTASSIUM SERUM 4.8 MMOL/L (3.5-5.1); SODIUM LEVEL 143.0 MMOL/L (136-145)
== END ==
LOC: SKLAB3 07:00
PROVIDERS: ATTEND Internal Medicine
DX: N18.9 Chronic kidney disease, unspecified (principal)

== ENCOUNTER → 2024-12-14 | Outpatient (REF) | payer MEDICARE, MEDICAID ==
[2024-12-14 10:13] LABS: PLATELET COUNT, AUTOMATED 330 10^3/uL (150-450)
[2024-12-14 10:35] LABS: ALT/SGPT 12.0 U/L (7.0-40); AST/SGOT 17.0 U/L (<34); CALCIUM LEVEL 9.6 MG/DL (8.3-10.6); CARBON DIOXIDE LEVEL 24.0 MMOL/L (20-31); CHLORIDE LEVEL 107.0 MMOL/L (98-107); CREATININE FOR GFR 2.0 MG/DL (0.70-1.30); GLOMERULAR FILTRATION RATE 32.3 (>35); POTASSIUM SERUM 4.7 MMOL/L (3.5-5.1); SODIUM LEVEL 142.0 MMOL/L (136-145)
== END ==
LOC: SKLAB3 09:21
PROVIDERS: ATTEND Internal Medicine
DX: N39.0 Urinary tract infection, site not specified (principal)

== ENCOUNTER → 2024-12-20 | Outpatient (CLI) | payer MEDICARE, MEDICAID | LOC: M SOG 06:50 | PROVIDERS: ATTEND Orthopaedic Surgery | DX: M25.562 Pain in left knee (principal) ==

== ENCOUNTER → 2024-12-26 | Outpatient (REF) | payer MEDICARE, MEDICAID ==
[~2024-12-26] MED LIST changes: +AMLO1TAB25 PO; +CARB15DR33 OU; +[UNRECOGNIZED DRUG - OTHER] TOP
[2024-12-26 08:02] LABS: CALCIUM LEVEL 9.3 MG/DL (8.3-10.6); CARBON DIOXIDE LEVEL 26.0 MMOL/L (20-31); CHLORIDE LEVEL 108.0 MMOL/L (98-107); CREATININE FOR GFR 2.24 MG/DL (0.70-1.30); GLOMERULAR FILTRATION RATE 28.2 (>35); POTASSIUM SERUM 5.1 MMOL/L (3.5-5.1); SODIUM LEVEL 144.0 MMOL/L (136-145)
[2024-12-26 16:09] LABS: HIV SCREEN CENTAUR SOURCE NEGATIVE (NEGATIVE)
[2024-12-26 16:17] LABS: HEP C VIRUS AB INDEX SOURCE PT 0.1 INDEX (0.0-0.8)
== END ==
LOC: SKLAB3 07:00
PROVIDERS: ATTEND Internal Medicine
DX: N18.9 Chronic kidney disease, unspecified (principal); Z11.4 Encounter for screening for human immunodeficiency virus [HIV]; Z11.59 Encounter for screening for other viral diseases; Z77.21 Contact with and (suspected) exposure to potentially hazardous body fluids; W46.0XXA Contact with hypodermic needle, initial encounter; Y92.129 Unspecified place in nursing home as the place of occurrence of the external cause

== ENCOUNTER → 2024-12-26 | Outpatient (REF) | payer MEDICARE, MEDICAID ==
[~2024-12-26] MED LIST changes: -AMLO1TAB25 PO; -CARB15DR33 OU; -[UNRECOGNIZED DRUG - OTHER] TOP
== END ==
LOC: SKLAB3 13:45
PROVIDERS: ATTEND Internal Medicine
DX: Z53.8 Procedure and treatment not carried out for other reasons (principal)

== ENCOUNTER → 2025-01-12 | Outpatient (CLI) | payer MEDICARE, MEDICAID ==
[~2025-01-12] MED LIST changes: +SODIUM CHLORIDE 0.9% 1000 ML XX SCH
[2025-01-12 09:30] VITALS: TEMP 96.6
[2025-01-12] MEDS: MIDAZOLAM INJ 2 MG/2 ML VIAL IV PRN (10:46)
[2025-01-12] MEDS: CIPROFLOXACIN 400 MG in IV 1 EA IV ONE (10:49)
[2025-01-12] MEDS: NS (Normal Saline) 0.9% 1,000 ML IV SCH (10:50)
[2025-01-12] MEDS: ISOVUE-300 61% 100 ML VIAL IV SCH (10:57)
[2025-01-12] MEDS: LIDOCAINE 1% MDV 20 ML VIAL SC SCH (10:58)
[2025-01-12 11:40] VITALS: BP 144/65; O2SAT 99
== END ==
LOC: M IRPRO 09:14
PROVIDERS: ATTEND Radiology Diagnostic Radiology
DX: N13.9 Obstructive and reflux uropathy, unspecified (principal)
CPT/HCPCS: 50435; 99152; 99153; C1729; C1887; J0744; J2250; J3010; Q9967

== ENCOUNTER → 2025-01-16 | Outpatient (REF) | payer MEDICARE, MEDICAID ==
[~2025-01-16] MED LIST changes: -SODIUM CHLORIDE 0.9% 1000 ML XX SCH
[2025-01-16 14:43] LABS: PLATELET COUNT, AUTOMATED 272 10^3/uL (150-450)
[2025-01-16 15:12] LABS: ALT/SGPT 14.0 U/L (7.0-40); AST/SGOT 17.0 U/L (<34); CALCIUM LEVEL 9.0 MG/DL (8.3-10.6); CARBON DIOXIDE LEVEL 24.0 MMOL/L (20-31); CHLORIDE LEVEL 107.0 MMOL/L (98-107); CREATININE FOR GFR 1.9 MG/DL (0.70-1.30); GLOMERULAR FILTRATION RATE 34.4 (>35); POTASSIUM SERUM 5.0 MMOL/L (3.5-5.1); SODIUM LEVEL 140.0 MMOL/L (136-145)
== END ==
LOC: SKLAB3 07:00
PROVIDERS: ATTEND Family Medicine
DX: N18.9 Chronic kidney disease, unspecified (principal)

== ENCOUNTER → 2025-02-04 | Outpatient (REF) | payer MEDICARE, MEDICAID | LOC: SKLAB3 18:30 | PROVIDERS: ATTEND Nurse Practitioner Family | DX: R50.9 Fever, unspecified (principal) ==

== ENCOUNTER → 2025-02-04 | Outpatient (REF) | payer MEDICARE, MEDICAID ==
[~2025-02-04] MED LIST changes: +AMLO1TAB25 PO; +AMOX500C PO; +CARB15DR33 OU; +EZET1TAB PO; -EZET1TAB98 PO; +FERR300L12 PO; +LEVO75TAB PO; +METH85CR11 TOP; +RISATAB3 PO; +[UNRECOGNIZED DRUG - OTHER] TOP
[2025-02-04 19:29] LABS: PLATELET COUNT, AUTOMATED 317 10^3/uL (150-450)
[2025-02-04 19:54] LABS: ALT/SGPT 16.0 U/L (7.0-40); AST/SGOT 15.0 U/L (<34); CALCIUM LEVEL 9.3 MG/DL (8.3-10.6); CARBON DIOXIDE LEVEL 20.0 MMOL/L (20-31); CHLORIDE LEVEL 106.0 MMOL/L (98-107); CREATININE FOR GFR 2.49 MG/DL (0.70-1.30); GLOMERULAR FILTRATION RATE 24.8 (>35); POTASSIUM SERUM 4.9 MMOL/L (3.5-5.1); SODIUM LEVEL 139.0 MMOL/L (136-145)
== END ==
LOC: SKLAB3 07:00
PROVIDERS: ATTEND Nurse Practitioner Adult Health
DX: R50.9 Fever, unspecified (principal)

== ENCOUNTER → 2025-02-05 | Outpatient (REF) | payer MEDICARE, MEDICAID ==
[~2025-02-05] MED LIST changes: -AMLO1TAB25 PO; -AMOX500C PO; -CARB15DR33 OU; -EZET1TAB PO; +EZET1TAB98 PO; -FERR300L12 PO; -LEVO75TAB PO; -METH85CR11 TOP; -RISATAB3 PO; -[UNRECOGNIZED DRUG - OTHER] TOP
[2025-02-05 09:42] LABS: APPEARANCE, URINE CLOUDY (CLEAR); BACTERIA, URINE AUTO NEGATIVE (NEGATIVE); BILIRUBIN, URINE AUTO NEGATIVE (NEGATIVE); BLOOD, URINE BLOOD 1+ (NEGATIVE); GLUCOSE, URINE (UA) AUTO NEGATIVE (NEGATIVE); KETONE, URINE AUTO NEGATIVE (NEGATIVE); LEUKOCYTE ESTERASE, URINE AUTO 3+ (NEGATIVE); NITRITE, URINE AUTO NEGATIVE (NEGATIVE); PROTEIN, URINE AUTO 2+ mg/dL (NEGATIVE); RBC, URINE AUTO 7 /HPF (0-3); SPECIFIC GRAVITY URINE AUTO 1.014 (1.002-1.035); SQUAMOUS EPITHELIAL CELL UR AU 0 /HPF (0-6); TRIPLE PHOSPHATE CRYSTALS LARGE; UROBILINOGEN, URINE AUTO 0.2 mg/dL (0.0-2.0); WBC, URINE AUTO 34 /HPF (0-3)
== END ==
LOC: SKLAB3 08:59
PROVIDERS: ATTEND Family Medicine
DX: R50.9 Fever, unspecified (principal)

== ENCOUNTER → 2025-02-06 | Outpatient (REF) | payer MEDICARE, MEDICAID ==
[2025-02-06 15:20] LABS: PLATELET COUNT, AUTOMATED 282 10^3/uL (150-450)
[2025-02-06 15:50] LABS: CALCIUM LEVEL 8.6 MG/DL (8.3-10.6); CARBON DIOXIDE LEVEL 22.0 MMOL/L (20-31); CHLORIDE LEVEL 105.0 MMOL/L (98-107); CREATININE FOR GFR 2.26 MG/DL (0.70-1.30); GLOMERULAR FILTRATION RATE 27.9 (>35); POTASSIUM SERUM 4.4 MMOL/L (3.5-5.1); SODIUM LEVEL 139.0 MMOL/L (136-145)
== END ==
LOC: SKLAB3 14:39
PROVIDERS: ATTEND Family Medicine
DX: N39.0 Urinary tract infection, site not specified (principal); N17.9 Acute kidney failure, unspecified

== ENCOUNTER → 2025-02-13 | Outpatient (REF) | payer MEDICARE, MEDICAID ==
[2025-02-13 08:22] LABS: PLATELET COUNT, AUTOMATED 431 10^3/uL (150-450)
[2025-02-13 09:02] LABS: ALT/SGPT 13.0 U/L (7.0-40); AST/SGOT 21.0 U/L (<34); CALCIUM LEVEL 10.1 MG/DL (8.3-10.6); CARBON DIOXIDE LEVEL 23.0 MMOL/L (20-31); CHLORIDE LEVEL 107.0 MMOL/L (98-107); CREATININE FOR GFR 1.79 MG/DL (0.70-1.30); GLOMERULAR FILTRATION RATE 36.9 (>35); POTASSIUM SERUM 4.5 MMOL/L (3.5-5.1); SODIUM LEVEL 142.0 MMOL/L (136-145)
== END ==
LOC: SKLAB3 07:00
PROVIDERS: ATTEND Family Medicine
DX: E11.9 Type 2 diabetes mellitus without complications (principal)

== ENCOUNTER 2025-03-04 20:32 | Emergency (ER) | payer MEDICARE, MEDICAID ==
[~2025-03-04] VITALS: Ht 180.3 cm; Wt 98.2 kg
[2025-03-04 21:14] LABS: BASO # 0.1 10^3/uL (0.0-0.2); BASO % 0.8 % (0.0-1.0); EOS # 0.5 10^3/uL (0.0-0.5); EOS % 6.7 % (0.0-3.0); LYMPH # 3.0 10^3/uL (1.5-5.0); LYMPH % 37.4 % (24.0-44.0); MONO # 0.8 10^3/uL (0.0-0.8); MONO % 9.9 % (2.0-8.0); NEUTROPHILS # 3.6 10^3/uL (1.5-8.5); NEUTROPHILS % 44.9 % (36.0-66.0); PLATELET COUNT, AUTOMATED 296 10^3/uL (150-450)
[2025-03-04 21:28] LABS: CALCIUM LEVEL 9.1 MG/DL (8.3-10.6); CARBON DIOXIDE LEVEL 25.0 MMOL/L (20-31); CHLORIDE LEVEL 106.0 MMOL/L (98-107); CREATININE FOR GFR 1.94 MG/DL (0.70-1.30); GLOMERULAR FILTRATION RATE 33.3 (>35); POTASSIUM SERUM 4.7 MMOL/L (3.5-5.1); SODIUM LEVEL 141.0 MMOL/L (136-145)
[2025-03-05] MEDS: PROPRANOLOL 20 MG TAB PO SCH (00:09)
[2025-03-05] MEDS ORDERED: CARB15DR33 OU (06:24)
[2025-03-05] MEDS ORDERED: [UNRECOGNIZED DRUG - OTHER] TOP (06:24)
[2025-03-05] MEDS ORDERED: ACET1TAB55 PO (06:24)
[2025-03-05] MEDS ORDERED: HOME MED LIST COMPLETE! XX SCH (06:35)
[2025-03-05] MEDS ORDERED: MOM 30 ML SUSPENSION UDC PO PRN (07:20)
[2025-03-05] MEDS ORDERED: BISACODYL 10 MG SUPP PR PRN (07:20)
[2025-03-05] MEDS: FERROUS GLUCONATE 324 MG TAB PO SCH (09:00)
[2025-03-05] MEDS: DORZOLAMIDE/TIMOLOL 10 ML OPHTHALMIC SOLN OU SCH (09:00)
[2025-03-05] MEDS: BICALUTAMIDE 50 MG TAB PO SCH (09:21)
[2025-03-05] MEDS: ACETAMINOPHEN 325 MG TAB PO SCH (09:22)
[2025-03-05] MEDS: FINASTERIDE 5 MG TAB PO SCH (09:22)
[2025-03-05] MEDS: busPIRone 5 MG TAB PO SCH (09:22)
[2025-03-05 10:44] VITALS: BP 170/75
[2025-03-05] MEDS: hydrALAZINE 20 MG/ML 1 ML VIAL IV ONE (10:44)
[2025-03-05 11:00] VITALS: TEMP 99.2
[2025-03-05] MEDS ORDERED: CEPHALEXIN 500 MG CAP PO ONE (11:05)
[2025-03-05] MEDS: SODIUM CHLORIDE 0.9% 1000 ML XX SCH (11:05)
[2025-03-05] MEDS: LIDOCAINE 1% MDV 20 ML VIAL SC SCH (11:05)
[2025-03-05] MEDS: ceFAZolin SODIUM 2 GM in DEXTROSE 5% (D5W) ADV/MINI-BAG 50 ML IV ONE (12:13)
[2025-03-05] MEDS: ISOVUE-300 61% 100 ML VIAL IV SCH (12:14)
[2025-03-05 12:46] VITALS: O2SAT 96
[2025-03-05] MEDS ORDERED: AMLO1TAB25 PO (12:46)
[2025-03-05 12:56] VITALS: BP 142/60
[2025-03-05] MEDS ORDERED: LATANOPROST 0.005% OPHTH SOLN 2.5 ML OU SCH (21:00)
== END 2025-03-05 13:56 | disposition home or self-care (01) ==
LOC: M ED 20:32
DX: T83.022A Displacement of nephrostomy catheter, initial encounter (principal); E78.5 Hyperlipidemia, unspecified; Z79.1 Long term (current) use of non-steroidal anti-inflammatories (NSAID); Z79.899 Other long term (current) drug therapy
CPT/HCPCS: 50432; 80048; 85025; 96365; 96372; 96375; 99285; C1729; C1769; J0360; J0688; Q9967

== ENCOUNTER 2025-03-24 20:08 | Inpatient (IN) | payer MEDICARE, MEDICAID ==
[~2025-03-24] VITALS: Ht 180.3 cm; Wt 94.6 kg
[~2025-03-24 20:08] MED LIST changes: +AMLO1TAB25 PO; +CARB15DR33 OU; +EZET1TAB PO; -EZET1TAB98 PO; +[UNRECOGNIZED DRUG - OTHER] TOP
[2025-03-24 20:37] LABS: BASO # 0.0 10^3/uL (0.0-0.2); BASO % 0.3 % (0.0-1.0); EOS # 0.1 10^3/uL (0.0-0.5); EOS % 0.8 % (0.0-3.0); LYMPH # 2.5 10^3/uL (1.5-5.0); LYMPH % 17.5 % (24.0-44.0); MONO # 1.6 10^3/uL (0.0-0.8); MONO % 11.3 % (2.0-8.0); NEUTROPHILS # 9.9 10^3/uL (1.5-8.5); NEUTROPHILS % 69.7 % (36.0-66.0); PLATELET COUNT, AUTOMATED 306 10^3/uL (150-450)
[2025-03-24 20:51] LABS: KETONE, URINE AUTO RFX NEGATIVE (NEGATIVE); LEUKOCYTE ESTERASE UR AUTO RFX 2+ (NEGATIVE); MUCUS, URINE RFX LARGE (NEGATIVE); MUCUS, URINE RFX SMALL (NEGATIVE); NITRITE, URINE AUTO RFX NEGATIVE (NEGATIVE); RBC, URINE AUTO RFX 156 /HPF (0-3); RBC, URINE AUTO RFX 34 /HPF (0-3); SQUAM EPITHELIAL CELL UR AURFX 0 /HPF (0-6); WBC, URINE AUTO RFX 5 /HPF (0-3); WBC, URINE AUTO RFX TNTC /HPF (0-3)
[2025-03-24 20:53] LABS: LEUKOCYTE ESTERASE UR AUTO RFX 1+ (NEGATIVE)
[2025-03-24 21:02] LABS: CALCIUM LEVEL 8.9 MG/DL (8.3-10.6); CARBON DIOXIDE LEVEL 23.0 MMOL/L (20-31); CHLORIDE LEVEL 107.0 MMOL/L (98-107); CREATININE FOR GFR 3.74 MG/DL (0.70-1.30); GLOMERULAR FILTRATION RATE 15.2 (>35); MAGNESIUM LEVEL 1.9 MG/DL (1.8-2.4); POTASSIUM SERUM 5.2 MMOL/L (3.5-5.1); SODIUM LEVEL 141.0 MMOL/L (136-145)
[2025-03-24] MEDS: NS 500 ML IV ONE ×2 (21:20→22:23)
[2025-03-24 21:49] LABS: CK-MB VALUE MASS 1.1 NG/ML (<3.6)
[2025-03-24 21:51] LABS: CPK CREATINE PHOSPHOKINASE 35.0 U/L (46-171); MB/CK RELATIVE INDEX 3.14 (< OR =4)
[2025-03-24] MEDS: CEFEPIME HCL 2 GM in DEXTROSE 5% (D5W) ADV/MINI-BAG 50 ML IV ONE (22:22)
[2025-03-24] MEDS ORDERED: GLUCOSE 4 GM CHEW PO PRN (23:05)
[2025-03-24] MEDS ORDERED: GLUCAGON INJ 1 MG VIAL SC PRN (23:05)
[2025-03-24] MEDS ORDERED: DEXTROSE 50% 50 ML SYRINGE IV PRN (23:05)
[2025-03-25] MEDS: NS (Normal Saline) 0.9% 1,000 ML IV SCH (00:30)
[2025-03-25] MEDS ORDERED: METH85CR11 TOP (03:36)
[2025-03-25] MEDS ORDERED: HOME MED LIST COMPLETE! XX SCH (03:40)
[2025-03-25] MEDS: HEPARIN SOD 5000 UNITS/ML 1 ML VIAL/SYRINGE SC SCH (06:09)
[2025-03-25] MEDS: INSULIN LISPRO (NovoLOG) PER UNIT SC SCH (07:30)
[2025-03-25 07:41] LABS: PLATELET COUNT, AUTOMATED 270 10^3/uL (150-450)
[2025-03-25 08:15] LABS: CALCIUM LEVEL 8.9 MG/DL (8.3-10.6); CARBON DIOXIDE LEVEL 23.0 MMOL/L (20-31); CHLORIDE LEVEL 108.0 MMOL/L (98-107); CREATININE FOR GFR 3.28 MG/DL (0.70-1.30); GLOMERULAR FILTRATION RATE 17.7 (>35); MAGNESIUM LEVEL 1.9 MG/DL (1.8-2.4); POTASSIUM SERUM 4.9 MMOL/L (3.5-5.1); SODIUM LEVEL 140.0 MMOL/L (136-145)
[2025-03-25] MEDS: DORZOLAMIDE/TIMOLOL 10 ML OPHTHALMIC SOLN OU SCH (09:00)
[2025-03-25] MEDS ORDERED: BISACODYL 10 MG SUPP PR PRN (09:05)
[2025-03-25] MEDS ORDERED: MOM 30 ML SUSPENSION UDC PO PRN (09:05)
[2025-03-25] MEDS: CEFEPIME HCL 1 GM in DEXTROSE 5% (D5W) ADV/MINI-BAG 50 ML IV SCH (10:04)
[2025-03-25] MEDS: BICALUTAMIDE 50 MG TAB PO SCH (10:05)
[2025-03-25] MEDS: FINASTERIDE 5 MG TAB PO SCH (10:05)
[2025-03-25] MEDS: busPIRone 5 MG TAB PO SCH (10:06)
[2025-03-25] MEDS: FERROUS GLUCONATE 324 MG TAB PO SCH (10:06)
[2025-03-25] MEDS: PROPRANOLOL 20 MG TAB PO SCH (10:07)
[2025-03-25] MEDS: ANALGESIC BALM CRM 3 OZ TOP SCH (10:09)
[2025-03-25 18:00] VITALS: BP 135/90; TEMP 97.9; O2SAT 99
[2025-03-25 19:44] VITALS: BP 163/70; TEMP 98; O2SAT 96
[2025-03-25] MEDS: LATANOPROST 0.005% OPHTH SOLN 2.5 ML OU SCH (21:00)
[2025-03-25] MEDS ORDERED: INSULIN LISPRO (NovoLOG) PER UNIT SC SCH (21:00)
[2025-03-25 23:37] VITALS: BP 146/66; TEMP 97.6; O2SAT 93
[2025-03-26 05:57] LABS: BASO # 0.0 10^3/uL (0.0-0.2); BASO % 0.5 % (0.0-1.0); EOS # 0.3 10^3/uL (0.0-0.5); EOS % 4.0 % (0.0-3.0); LYMPH # 1.8 10^3/uL (1.5-5.0); LYMPH % 23.6 % (24.0-44.0); MONO # 0.9 10^3/uL (0.0-0.8); MONO % 11.1 % (2.0-8.0); NEUTROPHILS # 4.7 10^3/uL (1.5-8.5); NEUTROPHILS % 60.5 % (36.0-66.0); PLATELET COUNT, AUTOMATED 270 10^3/uL (150-450)
[2025-03-26 06:26] LABS: CALCIUM LEVEL 8.7 MG/DL (8.3-10.6); CARBON DIOXIDE LEVEL 22.0 MMOL/L (20-31); CHLORIDE LEVEL 110.0 MMOL/L (98-107); CREATININE FOR GFR 2.55 MG/DL (0.70-1.30); GLOMERULAR FILTRATION RATE 24.0 (>35); MAGNESIUM LEVEL 1.7 MG/DL (1.8-2.4); POTASSIUM SERUM 4.7 MMOL/L (3.5-5.1); SODIUM LEVEL 141.0 MMOL/L (136-145)
[2025-03-26 08:08] VITALS: BP 163/71; TEMP 97.5; O2SAT 93
[2025-03-26] MEDS: MAG SULF 1GM/100ML (MAG RUN) 1 GM in IV 1 EA IV SCH (08:37)
[2025-03-26 12:00] VITALS: BP 156/76; TEMP 98.3; O2SAT 92
[2025-03-26 16:33] VITALS: BP 130/80; TEMP 98; O2SAT 92
[2025-03-26 19:47] VITALS: BP 146/71; TEMP 97.1; O2SAT 97
[2025-03-26] MEDS: AMOXICILLIN 500 MG CAP PO SCH (21:16)
[2025-03-27 03:58] VITALS: BP 162/72; TEMP 98.1; O2SAT 95
[2025-03-27 06:24] LABS: CALCIUM LEVEL 9.0 MG/DL (8.3-10.6); CARBON DIOXIDE LEVEL 23.0 MMOL/L (20-31); CHLORIDE LEVEL 106.0 MMOL/L (98-107); CREATININE FOR GFR 2.29 MG/DL (0.70-1.30); GLOMERULAR FILTRATION RATE 27.3 (>35); MAGNESIUM LEVEL 2.0 MG/DL (1.8-2.4); POTASSIUM SERUM 4.8 MMOL/L (3.5-5.1); SODIUM LEVEL 139.0 MMOL/L (136-145)
[2025-03-27 06:32] LABS: BASO # 0.0 10^3/uL (0.0-0.2); BASO % 0.5 % (0.0-1.0); EOS # 0.5 10^3/uL (0.0-0.5); EOS % 6.1 % (0.0-3.0); LYMPH # 2.2 10^3/uL (1.5-5.0); LYMPH % 27.7 % (24.0-44.0); MONO # 1.0 10^3/uL (0.0-0.8); MONO % 12.0 % (2.0-8.0); NEUTROPHILS # 4.3 10^3/uL (1.5-8.5); NEUTROPHILS % 53.3 % (36.0-66.0); PLATELET COUNT, AUTOMATED 306 10^3/uL (150-450)
[2025-03-27 07:49] VITALS: BP 163/70; TEMP 97.5; O2SAT 94
[2025-03-27] MEDS ORDERED: RISATAB3 PO (10:54)
[2025-03-27] MEDS ORDERED: LEVO75TAB PO (10:54)
[2025-03-27] MEDS ORDERED: AMOX500C PO (10:54)
[2025-03-27] MEDS ORDERED: FERR300L12 PO (10:54)
[2025-03-27 11:00] VITALS: BP 151/67
[2025-03-27] MEDS: FERROUS SULFATE 300 MG/5 ML UDC LIQUID PO SCH (13:03)
== END 2025-03-27 14:12 | DRG 699 ==
LOC: EDBD 20:08 → M ED 20:08 → M ED INP 03-25 02:20 → M PCU 03-25 17:44
PROVIDERS: ADMIT Student in an Organized Health Care Education/Training Program; ATTEND Internal Medicine
DX: T83.022A Displacement of nephrostomy catheter, initial encounter (principal); N39.0 Urinary tract infection, site not specified; N17.9 Acute kidney failure, unspecified; I12.9 Hypertensive chronic kidney disease with stage 1 through stage 4 chronic kidney disease, or unspecified chronic kidney disease; R73.03 Prediabetes; N18.32 Chronic kidney disease, stage 3b; R33.9 Retention of urine, unspecified; G62.9 Polyneuropathy, unspecified; D64.9 Anemia, unspecified; H40.9 Unspecified glaucoma; F39 Unspecified mood [affective] disorder; E86.1 Hypovolemia; N40.1 Benign prostatic hyperplasia with lower urinary tract symptoms; M10.9 Gout, unspecified; B96.4 Proteus (mirabilis) (morganii) as the cause of diseases classified elsewhere; B96.5 Pseudomonas (aeruginosa) (mallei) (pseudomallei) as the cause of diseases classified elsewhere; B96.89 Other specified bacterial agents as the cause of diseases classified elsewhere; Z66 Do not resuscitate; Z79.899 Other long term (current) drug therapy; Z85.46 Personal history of malignant neoplasm of prostate; Y83.1 Surgical operation with implant of artificial internal device as the cause of abnormal reaction of the patient, or of later complication, without mention of misadventure at the time of the procedure

== ENCOUNTER → 2025-03-28 | Outpatient (CLI) | payer MEDICARE, MEDICAID ==
[~2025-03-28] MED LIST changes: +AMOX500C PO; +FERR300L12 PO; +LEVO75TAB PO; +METH85CR11 TOP; +RISATAB3 PO
[2025-03-28 14:59] VITALS: TEMP 97.1
[2025-03-28] MEDS: NS (Normal Saline) 0.9% 1,000 ML IV SCH (15:32)
[2025-03-28] MEDS: MIDAZOLAM INJ 2 MG/2 ML VIAL IV PRN (16:18)
[2025-03-28] MEDS: CIPROFLOXACIN 400 MG in IV 1 EA IV ONE (16:20)
[2025-03-28] MEDS: LIDOCAINE 1% MDV 20 ML VIAL SC SCH (16:27)
[2025-03-28] MEDS: ISOVUE-300 61% 100 ML VIAL IV SCH (16:34)
[2025-03-28] MEDS: SODIUM CHLORIDE 0.9% 1000 ML XX SCH (16:36)
[2025-03-28 17:02] VITALS: BP 145/79; O2SAT 96
== END ==
LOC: M IRPRO 14:22
PROVIDERS: ATTEND Nurse Practitioner Adult Health
DX: N13.9 Obstructive and reflux uropathy, unspecified (principal)
CPT/HCPCS: 50435; 99152; C1729; C1887; J0744; J2250; J3010; Q9967